=== PATIENT | male | born 1960 | race Caucasian/White ===

== ENCOUNTER 2018-05-25 13:39 | Inpatient (IN) | payer OTHER, SELFPAY ==
[2018-05-25] MEDS ORDERED: NA CHLORIDE 0.9% 2,000 ML ONE ×2 (14:22→14:49)
[2018-05-25 14:41] LABS: Absolute Lymphocytes (CBC) 1.4 K/uL (0.7-4.9); Absolute Monocytes 0.6 K/uL (0.1-1.3); Absolute Neutrophil 11.3 K/uL (1.8-8.0); Basophils % 0.3 % (0-1.3); Eosinophils % 0.1 % (0-4.4); Hematocrit 41.7 % (39.6-49.0); Lymphocytes % 10.3 % (15.3-44.8); MCH 33.5 pg (27.0-35.0); MCV 98.6 fL (80-100); MPV 10.3 fL (7.6-11.3); Monocytes % 4.8 % (3.3-12.3); RBC Red Blood Cell Count 4.23 M/uL (4.33-5.43)
[2018-05-25 14:42] LABS: Protime INR 1.19
[2018-05-25 14:58] LABS: Albumin 2.4 g/dL (3.4-5.0); Bilirubin Direct 0.4 mg/dL (0-0.2); Bilirubin Total 0.8 mg/dL (0.2-1.0); Magnesium 2.5 mg/dL (1.8-2.4); Potassium 4.3 mmol/L (3.5-5.1); Protein, Total 6.9 g/dL (6.4-8.2); Troponin (Emerg Dept Use Only) 0.27 ng/mL (0.0-0.045)
--- NOTE | 2018-05-25 15:33 | EKG ---
Test Date: 2018-05-25 Test Time: 13:52:49 [employer] Tanker Truck Driver: GIULIANO MEASUREMENT RESULTS: Intervals: Rate: 99 CT: 136 QRSD: 88 QT: 388 QTc: 497 [place]: P: 65 CT: 136 QRS: 53 T: -28 INTERPRETIVE STATEMENTS: Normal sinus rhythm Possible Left atrial enlargement T wave abnormality, consider anterolateral ischemia Prolonged QT Abnormal ECG Compared to ECG 03/21/2006 01:15:00 T-wave abnormality now present Possible ischemia now present Prolonged QT interval now present Myocardial infarct finding no longer present Electronically Signed On 05-25-18 15:33:08 CDT by Gopal Saenz
--- NOTE | 2018-05-25 16:09 | RAD REPORT ---
EXAM DESCRIPTION: CT - Chest For Pe Angio - 05/25/2018 3:52 pm CLINICAL HISTORY: Chest pain. CHEST PAIN COMPARISON: No comparisons TECHNIQUE: CT angiogram of the pulmonary arteries was performed with MIP. All CT scans are performed using dose optimization technique as appropriate and may include automated exposure control or mA/KV adjustment according to patient size. FINDINGS: No evidence of pulmonary thromboembolism. No acute aortic finding demonstrated. The lungs are clear. No significant pericardial or pleural fluid. No concerning bony finding. IMPRESSION: No evidence of pulmonary thromboembolism. No acute lung findings.
--- NOTE | 2018-05-25 16:18 | RAD REPORT ---
EXAM DESCRIPTION: CTAbdomen Pelvis W Contrast - 05/25/2018 3:52 pm CLINICAL HISTORY: Abdominal pain. ABD PAIN COMPARISON: Chest For Pe Angio dated 05/25/2018 TECHNIQUE: Biphasic CT imaging of the abdomen and pelvis was performed with 100 ml non-ionic IV cont rast. All CT scans are performed using dose optimization technique as appropriate and may include automated exposure control or mA/KV adjustment according to patient size. FINDINGS: The lung bases are clear. Diffuse fatty liver is present. No focal mass or intrahepatic biliary dilatation. The spleen, adrenal glands and kidneys demonstrate no acute process. Tiny nonobstructing left renal calculus suspected. Pancreas is unremarkable. No bowel obstruction, free air, free fluid or abscess. Sigmoid diverticulosis coli is present without diverticulitis. The appendix is normal. No evidence of significant lymphadenopathy. Left total hip arthroplasty noted. IMPRESSION: No acute intra-abdominal or pelvic finding. Fatty liver. Punctate stone left kidney without hydronephrosis. Sigmoid diverticulosis coli without diverticulitis.
--- NOTE | 2018-05-25 17:05 | EDPHYS ---
Physician Documentation [facility] Name: Varun Kendrick Jr Age: 57 yrs Sex: Male : 1960 Arrival Date: 05/25/2018 Time: 13:43 Bed 26 Private MD: ED Physician Ovidio Howell HPI: 05/25 14:59 This 57 yrs old Male presents to ER via EMS with complaints of Chest Pain, ma2 High Blood Sugar. 14:59 The patient or guardian reports chest pain that is located primarily in the chest ma2 diffusely. Onset: gradually, 2 day(s) ago. Associated signs and symptoms: Pertinent positives: None. Pertinent negatives: cough, headache, shortness of breath, syncope. The chest pain is described as aching. Duration: The patient or guardian reports multiple episodes. Severity of pain: At its worst the pain was moderate in the emergency department the pain is unchanged. The patient has not experienced similar symptoms in the past. had a staph thigh infection last week that is improving on antibiotics, he is here with 2 days of on/off chest pain, n adina edema or hx of DVT . never had chest pain or CAD. Historical: - Allergies: 13:50 Bactrim; aj1 - Home Meds: 13:50 antibiotics [Active]; aj1 - PMHx: 13:50 staph infection; aj1 - Immunization history:: Flu vaccine is not up to date. - Social history:: Smoking status: Patient uses tobacco products, smokes one pack cigarettes per day. Patient reports that he quit smoking 12 days ago, Patient/guardian denies using alcohol, street drugs, The patient lives with family, . - Ebola Screening: : Patient denies travel to an Ebola-affected area in the 21 days before illness onset. - Family history:: not pertinent, pertinent for. ROS: 14:59 Eyes: Negative for injury, pain, redness, and discharge, Respiratory: Negative for ma2 shortness of breath, cough, wheezing, and pleuritic chest pain, Abdomen/GI: Negative for abdominal pain, nausea, diarrhea, and constipation, MS/Extremity: Negative for injury and deformity, Skin: Negative for injury, rash, and discoloration, Neuro: Negative for headache, weakness, numbness, tingling, and seizure. 14:59 Cardiovascular: Positive for chest pain, Negative for edema, orthopnea, palpitations, acute changes. 14:59 Neuro: Positive for Negative for altered mental status, loss of consciousness, tinnitus, visual changes. 14:59 All other systems are negative. Exam: 14:59 Head/Face: Normocephalic, atraumatic. Neck: Trachea midline, no thyromegaly or masses ma2 palpated, and no cervical lymphadenopathy. Supple, full range of motion without nuchal rigidity, or vertebral point tenderness. No Meningismus. Chest/axilla: Normal chest wall appearance and motion. Nontender with no deformity. No lesions are appreciated. Cardiovascular: Regular rate and rhythm with a normal S1 and S2. No gallops, murmurs, or rubs. Normal PMI, no JVD. No pulse deficits. Respiratory: Lungs have equal breath sounds bilaterally, clear to auscultation and percussion. No rales, rhonchi or wheezes noted. No increased work of breathing, no retractions or nasal flaring. MS/ Extremity: Pulses equal, no cyanosis. Neurovascular intact. Full, normal range of motion. Neuro: Awake and alert, GCS 15, oriented to person, place, time, and situation. Cranial nerves II-XII grossly intact. Motor strength 5/5 in all extremities. Sensory grossly intact. Cerebellar exam normal. Normal gait. 14:59 Constitutional: The patient appears in obvious distress, moderately distressed, obviously ill. 14:59 Skin: Wound recheck: left upper thigh wound maximum diameter < 1 cm, good granulation tissue no induration, no pain no tenderness no crepitations . Vital Signs: 13:50 BP 122 / 49; Pulse 101; Resp 18; Temp 98.7(O); Pulse Ox 98% on R/A; Weight 106.59 kg aj1 (R); Height 6 ft. 0 in. (182.88 cm) (R); Pain 8/10; 14:48 BP 133 / 66; Pulse 96; Resp 20; Pulse Ox 99% on R/A; aj1 16:07 BP 109 / 54; Pulse 105; Resp 20; Pulse Ox 99% on R/A; aj1 17:30 BP 117 / 65; Pulse 103; Resp 20; Pulse Ox 97% on R/A; aj1 18:45 BP 105 / 52; Pulse 100; Resp 20; Pulse Ox 96% on R/A; aj1 19:37 BP 115 / 56; Pulse 99; Pulse Ox 93% on R/A; aj1 13:50 Body Mass Index 31.87 (106.59 kg, 182.88 cm) aj1 MDM: 13:44 Patient medically screened. ma2 14:59 Differential diagnosis: acute pericarditis, coronary artery disease gastroesophageal ma2 reflux disease (GERD), pulmonary embolus, DKA. Data reviewed: vital signs, nurses notes, lab test result(s), radiologic studies. 16:58 The patient was given aspirin in the Emergency Department. KRISTYN Risk Score: TOTAL SCORE ma2 = 4. Counseling: I had a detailed discussion with the patient and/or guardian regarding: the historical points, exam findings, and any diagnostic results supporting the discharge/admit diagnosis, the presence of at least one elevated blood pressure reading (>120/80) during this emergency department visit, the need for further work-up and treatment in the hospital. Response to treatment: the patient's symptoms have mildly improved after treatment. ED course: has NSTEMI, EKG with TWI V3-6, trop 0.2, also has new onset DM. discussed with Dr. Saenz who recommend medical management overnight, cath in the morning, discussed with dr. Freitas . 05/25 13:45 Order name: Basic Metabolic Panel; Complete Time: 15:14 ne05/25 13:45 Order name: CBC with Diff; Complete Time: 14:53 ne05/25 13:45 Order name: LFT's; Complete Time: 15:14 ne05/25 13:45 Order name: Magnesium; Complete Time: 15:14 ne05/25 13:45 Order name: NT PRO-BNP; Complete Time: 15:14 05/25 13:45 Order name: PT-INR; Complete Time: 14:52 ne05/25 13:45 Order name: Troponin (emerg Dept Use Only); Complete Time: 15:14 ne05/25 13:45 Order name: XRAY Chest (1 view) ne05/25 13:45 Order name: Blood Culture Adult (2) [facility] 05/25 13:45 Order name: Lactate; Complete Time: 15:14 [facility] 05/25 13:46 Order name: D-Dimer; Complete Time: 14:53 ne05/25 14:52 Order name: CT Chest For PE Angio; Complete Time: 16:34 ma2 05/25 15:59 Order name: Urine Dipstick--Ancillary (enter results) ss 05/25 17:57 Order name: Lactate Sepsis 2 HR Follow-up EDMS 05/25 13:45 Order name: EKG; Complete Time: 13:46 ma2 05/25 13:45 Order name: Cardiac monitoring; Complete Time: 13:57 ma2 05/25 13:45 Order name: EKG - Nurse/Tech; Complete Time: 13:57 ma2 05/25 13:45 Order name: IV Saline Lock; Complete Time: 13:57 ma2 05/25 13:45 Order name: Labs collected and sent; Complete Time: 14:31 ma2 05/25 13:45 Order name: O2 Per Protocol; Complete Time: 13:57 ma2 05/25 13:45 Order name: O2 Sat Monitoring; Complete Time: 13:57 ma2 05/25 15:14 Order name: CT Abd/Pelvis - W/Contrast; Complete Time: 16:34 ma2 05/25 16:46 Order name: EKG - Nurse/Tech: repeat; Complete Time: 16:59 ma2 Administered Medications: 14:20 Drug: NS 0.9% 2000 ml Route: IV; Rate: 1 bolus; Site: right antecubital; aj1 17:38 Drug: Aspirin Chewable Tablet 324 mg Route: PO; aj1 18:47 Follow up: Response: No adverse reaction aj1 17:38 Drug: Lovenox 80 mg Route: Sub-Q; Site: right lower abdomen; aj1 18:47 Follow up: Response: No adverse reaction aj1 17:38 Drug: Metoprolol 25 mg Route: PO; aj1 18:47 Follow up: Response: No adverse reaction aj1 17:38 Drug: PlaVIX 300 mg Route: PO; aj1 18:48 Follow up: Response: No adverse reaction aj1 17:47 Drug: Zofran 4 mg Route: IVP; Site: left antecubital; aj1 18:48 Follow up: Response: No adverse reaction aj1 20:08 Drug: morphine 4 mg Route: IVP; Site: left antecubital; rv 20:08 Follow up: Response: Medication administered at discharge. rv Point of Care Testing: Blood Glucose: 19:37 Blood Glucose: 399 mg/dL; aj1 Ranges: Critical Glucose Levels:Adult <50 mg/dl or >400 mg/dl <40 mg/dl or >180 mg/dl Disposition: 05/25/18 17:04 Hospitalization ordered by Andrew Freitas for Inpatient Admission. Preliminary diagnosis are Non-ST elevation (NSTEMI) myocardial infarction, Elevated blood glucose level. - Bed requested for Intensive Care Unit. - Status is Inpatient Admission. rv - Condition is Stable. - Problem is new. - Symptoms are unchanged. UTI on Admission? No Signatures: Dispatcher [employer] EDMS Radha Moran RN RN aj1 Mira Crowder RN RN dw Ovidio Howell MD MD ma2 Higinio Holley RN RN rv Corrections: (The following items were deleted from the chart) 19:19 17:04 Hospitalization Ordered by Andrew Freitas MD for Inpatient Admission. Preliminary dw diagnosis is Non-ST elevation (NSTEMI) myocardial infarction; Elevated blood glucose level. Bed requested for Intensive Care Unit. Status is Inpatient Admission. Condition is Stable. Problem is new. Symptoms are unchanged. UTI on Admission? No. ma2 20:10 19:19 05/25/2018 17:04 Hospitalization Ordered by Andrew Freitas MD for Inpatient rv Admission. Preliminary diagnosis is Non-ST elevation (NSTEMI) myocardial infarction; Elevated blood glucose level. Bed requested for Intensive Care Unit. Status is Inpatient Admission. Condition is Stable. Problem is new. Symptoms are unchanged. UTI on Admission? No. dw
--- NOTE | 2018-05-25 17:05 | ER ---
Nurse's Notes [facility] Name: Varun Kendrick Jr Age: 57 yrs Sex: Male : 1960 Arrival Date: 05/25/2018 Time: 13:43 Bed 26 Private MD: Diagnosis: Non-ST elevation (NSTEMI) myocardial infarction;Elevated blood glucose level Presentation: 05/25 13:46 Presenting complaint: EMS states: He has been having sharp, intermittent chest pain for aj1 the past 2 days. Patient reports he is currently taking antibiotics for a staph infection to his groin. Patient also reports pain to right ankle. Swelling noted to right ankle. EMS reports that when they checked his blood sugar it was too high to read. Patient denies any history of diabetes. Transition of care: patient was not received from another setting of care. Onset of symptoms was May 22, 2018. Risk Assessment: Do you want to hurt yourself or someone else? Patient reports no desire to harm self or others. Initial Sepsis Screen: Does the patient meet any 2 criteria? HR > 90 bpm. No. Patient's initial sepsis screen is negative. Does the patient have a suspected source of infection? Yes: Skin breakdown/wound. Care prior to arrival: IV initiated. 20 GA, in the left antecubital area. 13:46 Acuity: COLBY 2 aj1 13:46 Method Of Arrival: EMS: [facility] aj1 Triage Assessment: 13:50 General: Appears in no apparent distress. comfortable, Behavior is calm, cooperative, aj1 appropriate for age. Pain: Complains of pain in chest and right ankle Pain currently is 8 out of 10 on a pain scale. Cardiovascular: Patient's skin is warm and dry. Historical: - Allergies: 13:50 Bactrim; aj1 - Home Meds: 13:50 antibiotics [Active]; aj1 - PMHx: 13:50 staph infection; aj1 - Immunization history:: Flu vaccine is not up to date. - Social history:: Smoking status: Patient uses tobacco products, smokes one pack cigarettes per day. Patient reports that he quit smoking 12 days ago, Patient/guardian denies using alcohol, street drugs, The patient lives with family, . - Ebola Screening: : Patient denies travel to an Ebola-affected area in the 21 days before illness onset. - Family history:: not pertinent, pertinent for. Screenin:53 Abuse screen: Denies threats or abuse. Denies injuries from another. Nutritional aj1 screening: No deficits noted. Tuberculosis screening: No symptoms or risk factors identified. 19:39 Fall Risk None identified. aj1 Assessment: 13:53 General: Appears in no apparent distress. uncomfortable, Behavior is calm, cooperative, aj1 appropriate for age. Pain: Complains of pain in chest and right ankle Pain radiates to back Pain currently is 8 out of 10 on a pain scale. Quality of pain is described as sharp, Pain began 2-3 days ago. Is intermittent. Neuro: Level of Consciousness is awake, alert, obeys commands, Oriented to person, place, time, situation, Speech is normal. Cardiovascular: Reports chest pain, Denies shortness of breath, Heart tones S1 S2 present Patient's skin is warm and dry. Rhythm is sinus rhythm Chest pain is described as Pain is 8 out of 10 on a pain scale. quality is sharp, radiates back. Respiratory: Airway is patent Respiratory effort is even, unlabored, Respiratory pattern is Breath sounds are clear bilaterally. GI: No signs and/or symptoms were reported involving the gastrointestinal system. : No signs and/or symptoms were reported regarding the genitourinary system. EENT: No signs and/or symptoms were reported regarding the EENT system. Derm: Skin is pink, warm \T\ dry. normal. Musculoskeletal: Swelling present in right ankle. 14:47 Reassessment: Patient appears in no apparent distress at this time. No changes from aj1 previously documented assessment. Patient and/or family updated on plan of care and expected duration. Pain level reassessed. Patient is alert, oriented x 3, equal unlabored respirations, skin warm/dry/pink. 14:53 Reassessment: Chastity Umana 2049; notified;. 16:06 Reassessment: Patient returned to room from CT. No complaints at this time. General: aj1 Appears in no apparent distress. comfortable, Behavior is calm, cooperative. Neuro: Level of Consciousness is awake, alert, obeys commands. Cardiovascular: Patient's skin is warm and dry. Rhythm is sinus rhythm. Respiratory: Airway is patent Respiratory effort is even, unlabored, Respiratory pattern is regular, symmetrical. Derm: Skin is pink, warm \T\ dry. normal. 17:06 Reassessment: Dr. Saenz at bedside to evaluate patient. aj1 17:20 Reassessment: Patient states that he had wound culture done on his abscess at [facility]. Spoke with staff at [facility] via telephone, states they saw him but did not do a culture. 17:40 Reassessment: Patient reports feeling nauseated, dry heaving. Notified Dr. Washburn. aj1 Order received. 18:42 Reassessment: Patient appears in no apparent distress at this time. No changes from aj1 previously documented assessment. Patient and/or family updated on plan of care and expected duration. Pain level reassessed. Patient is alert, oriented x 3, equal unlabored respirations, skin warm/dry/pink. Vital Signs: 13:50 BP 122 / 49; Pulse 101; Resp 18; Temp 98.7(O); Pulse Ox 98% on R/A; Weight 106.59 kg aj1 (R); Height 6 ft. 0 in. (182.88 cm) (R); Pain 8/10; 14:48 BP 133 / 66; Pulse 96; Resp 20; Pulse Ox 99% on R/A; aj1 16:07 BP 109 / 54; Pulse 105; Resp 20; Pulse Ox 99% on R/A; aj1 17:30 BP 117 / 65; Pulse 103; Resp 20; Pulse Ox 97% on R/A; aj1 18:45 BP 105 / 52; Pulse 100; Resp 20; Pulse Ox 96% on R/A; aj1 19:37 BP 115 / 56; Pulse 99; Pulse Ox 93% on R/A; aj1 13:50 Body Mass Index 31.87 (106.59 kg, 182.88 cm) aj1 ED Course: 13:43 Patient arrived in ED. aj1 13:44 Ovidio Howell MD is Attending Physician. ma2 13:49 Triage completed. aj1 13:50 Arm band placed on. aj1 13:50 Urine collected: clean catch specimen, clear, leyla colored, Amount Voided: 120mL EKG jp3 done, by ED staff, reviewed by Ovidio Howell MD. 13:53 Patient has correct armband on for positive identification. technical systems architect on. Pulse aj1 ox on. NIBP on. 13:53 No provider procedures requiring assistance completed. Maintain EMS IV. Dressing aj1 intact. Good blood return noted. Site clean \T\ dry. Gauge \T\ site: 20 g to left AC. Patient maintains SpO2 saturation greater than 95% on room air. 13:57 Radha Moran, RN is Primary Nurse. aj1 14:15 Initial lab(s) drawn, by me, sent to lab. First set of blood cultures drawn via jp3 20-gauge IV in Left A/C. 14:30 D-Dimer Sent. jp3 14:30 Lactate Sent. jp3 14:30 Basic Metabolic Panel Sent. jp3 14:30 CBC with Diff Sent. jp3 14:31 LFT's Sent. jp3 14:31 NT PRO-BNP Sent. jp3 14:31 Magnesium Sent. jp3 14:31 PT-INR Sent. jp3 14:40 Second set of blood cultures drawn via 21-gauge Butterfly needle from Right A/C. jp3 14:47 Blood Culture Adult (2) Sent. jp3 14:54 X-ray completed. Portable x-ray completed in exam room. Patient tolerated procedure mh1 well. 14:55 Notified ED physician of a critical lab result(s). lactate 2.4. ss 14:57 XRAY Chest (1 view) In Process Unspecified. EDMS 15:51 CT completed. Patient tolerated procedure well. Patient moved to CT via wheelchair. Patient moved back from CT. 15:53 CT Chest For PE Angio In Process Unspecified. EDMS 15:53 CT Abd/Pelvis - W/Contrast In Process Unspecified. EDMS 17:03 Andrew Freitas MD is Hospitalizing Provider. ma2 17:03 EKG done, by cytotechnologist. reviewed by Ovidio Howell MD. sm3 20:10 Patient admitted, IV remains in place. intact. rv Administered Medications: 14:20 Drug: NS 0.9% 2000 ml Route: IV; Rate: 1 bolus; Site: right antecubital; aj1 17:38 Drug: Aspirin Chewable Tablet 324 mg Route: PO; aj1 18:47 Follow up: Response: No adverse reaction aj1 17:38 Drug: Lovenox 80 mg Route: Sub-Q; Site: right lower abdomen; aj1 18:47 Follow up: Response: No adverse reaction aj1 17:38 Drug: Metoprolol 25 mg Route: PO; aj1 18:47 Follow up: Response: No adverse reaction aj1 17:38 Drug: PlaVIX 300 mg Route: PO; aj1 18:48 Follow up: Response: No adverse reaction aj1 17:47 Drug: Zofran 4 mg Route: IVP; Site: left antecubital; aj1 18:48 Follow up: Response: No adverse reaction aj1 20:08 Drug: morphine 4 mg Route: IVP; Site: left antecubital; rv 20:08 Follow up: Response: Medication administered at discharge. rv Point of Care Testing: Blood Glucose: 19:37 Blood Glucose: 399 mg/dL; aj1 Ranges: Outcome: 17:04 Decision to Hospitalize by Provider. ma2 20:09 Admitted to ICU accompanied by nurse, via stretcher, room 7, with oxygen, on monitor, rv with chart, Report called to ARNOL CARUSO 20:09 Condition: stable 20:09 Instructed on the need for admit. 20:10 Patient left the ED. rv Signatures: Dispatcher [employer] EDMS Radha Moran RN RN aj1 [facility] Fiorella Stanford, RN RN Karen Lam Henry, RN RN hj Alzahri, Mohammad, MD MD wy2 Keila Irwin 3 Higinio Holley RN RN rv Haile Man jp3
--- NOTE | 2018-05-25 17:33 | RAD REPORT ---
EXAM DESCRIPTION: RAD - Chest Single View - 05/25/2018 2:56 pm CLINICAL HISTORY: Chest pain COMPARISON: None. TECHNIQUE: AP portable chest image was obtained 1437 hours . FINDINGS: Lungs are clear. Heart and vasculature are normal. No measurable pleural effusion and no p neumothorax. No gross bony abnormality seen. No acute aortic findings suspected. IMPRESSION: No acute cardiopulmonary process.
[2018-05-25] MEDS ORDERED: CLOPIDOGREL 75 MG TABLET ONE (17:39)
[2018-05-25] MEDS ORDERED: ASPIRIN 81 MG CHEWABLE TABLET ONE (17:39)
[2018-05-25] MEDS ORDERED: ENOXAPARIN 80 MG/0.8 ML SQ ONE (17:40)
[2018-05-25] MEDS ORDERED: METOPROLOL TAR 25 MG TAB ONE (17:40)
[2018-05-25] MEDS ORDERED: ONDANSETRON 4 MG/2 ML VIAL ONE (17:51)
[2018-05-25] MEDS ORDERED: MORPHINE 4 MG/ML SYR IV PRN (18:15)
--- NOTE | 2018-05-25 18:20 | P.HP ---
Certification for Inpatient Patient admitted to: Inpatient With expected LOS: >2 Midnights Patient will require the following post-hospital care: None Practitioner: I am a practitioner with admitting privileges, knowledge of patient current condition, hospital course, and medical plan of care. Services: Services provided to patient in accordance with Admission requirements found in Title 42 Section 412.3 of the Code of Federal Regulations Patient History Date of Service: 05/25/18 Reason for admission: chest pain History of Present Illness: 57 y/o man with family hx of CAD presents to ER today chest pain x 3 days. He was healthy. In the past 3 days he had several episodes of left chest pain nad pressure feelings, radiuaiting to left shoulder. Lasting 3 hours or so, 8/1-10 scale. He went to ER and tropo was elevated. He is free from chest pain now. Father had OH at age of 42. Allergies sulfamethoxazole [From Bactrim] Allergy (Verified 05/25/18 18:06) Hives/Rash trimethoprim [From Bactrim] Allergy (Verified 05/25/18 18:06) Hives/Rash Review of Systems 10-point ROS is otherwise unremarkable Physical Examination - Physical Exam General: Alert, In no apparent distress HEENT: Atraumatic, PERRLA, Mucous membr. moist/pink, EOMI, Sclerae nonicteric Neck: Supple, 2+ carotid pulse no bruit, No LAD, Without JVD or thyroid abnormality Respiratory: Clear to auscultation bilaterally, Normal air movement Cardiovascular: Regular rate/rhythm, Normal S1 S2 Gastrointestinal: Normal bowel sounds, No tenderness Musculoskeletal: No tenderness Integumentary: No rashes Neurological: Normal gait, Normal speech, Normal strength at 5/5 x4 extr, Normal tone, Normal affect Lymphatics: No axilla or inguinal lymphadenopathy - Studies Laboratory Data (last 24 hrs) 05/25/18 14:15: PT 14.1 H, INR 1.19 05/25/18 14:15: WBC 13.4 H, Hgb 14.2, Hct 41.7, Plt Count 183 05/25/18 14:15: Sodium 135 L, Potassium 4.3, BUN 29 H, Creatinine 1.30, Glucose 626 H*, Magnesium 2.5 H, Total Bilirubin 0.8, AST 15, ALT 28, Alkaline Phosphatase 141 H Assessment and Plan - Problems (Diagnosis) (1) Myocardial infarction acute Current Visit: Yes Status: Acute Qualifiers: Myocardial infarction type: non-ST elevation myocardial infarction Qualified Code(s): I21.4 - Non-ST elevation (NSTEMI) myocardial infarction - Plan --ICU --Asapirin, Lopresor --Nitro PRN --Morphine PRN --Lovenox --Lipids --Cons Dr Saenz --Likely cath tomorrow - Advance Directives Does patient have a Living Will: No Does patient have a Durable POA for Healthcare: No
[2018-05-25 18:31] LABS: Urine Blood TRACE (NEG); Urine Glucose 2+ (NEG); Urine Protein NEGATIVE (NEG); Urine Specific Gravity <1.005 (1.005-1.030)
--- NOTE | 2018-05-25 19:39 | EKG ---
Test Date: 2018-05-25 Test Time: 16:53:47 Assistant Real Estate Manager: JEAN PAUL MEASUREMENT RESULTS: Intervals: Rate: 102 MO: 138 QRSD: 88 QT: 348 QTc: 453 [place]: P: 65 MO: 138 QRS: 53 T: -52 INTERPRETIVE STATEMENTS: Sinus tachycardia Possible Left atrial enlargement LVH with secondary repolarization changes Abnormal ECG Compared to ECG 05/25/2018 13:52:49 no significant change from previous ECG Electronically Signed On 05-25-18 19:39:20 CDT by Gopal Saenz
[2018-05-25] MEDS ORDERED: NITROGLYCERIN 0.4 MG/TAB SL ONE (19:43)
[2018-05-25] MEDS ORDERED: MORPHINE 4 MG/ML SYR ONE (19:58)
[2018-05-25] MEDS: ENOXAPARIN 100 MG/ML SYR SQ SCH (20:36)
[2018-05-25] MEDS ORDERED: METOPROLOL TAR 50 MG TAB PO SCH (21:00)
[2018-05-25 21:17] VITALS: BMI 32.8
--- NOTE | 2018-05-25 22:12 | CON ---
Chief Complaint: Chest pain. History Of Present Illness: Mr. Kendrick started feeling sick several days ago. He had a large absces s on the inner aspect of his thigh. He squeezed it, a lot of pus came out. He started feeling sick then, getting chest pain and having other problems. He stayed away from work, went to a minor ER i [facility] where he was told it was a staph infection. We do not have any results of that. We are trying t o call the facility where it was done to see if we can get it. The patient has no previous history o f myocardial infarction or stroke, but he does have elevated troponin. He has an EKG that shows nons pecific changes in the T-waves. His home medications have been oxacillin for the infection. He repo rts a drug intolerance to Bactrim; he has not been on Bactrim. He was a cigarette smoker, but quit 1 2 days ago. Denies using alcohol or illegal drugs. The patient has an elevated lactate level and hi s troponin is elevated at 0.27. Physical Examination: General: He is alert, oriented, pleasant, obese. Vital Signs: Blood pressure 122/49, pulse 101, temperature 98.7, weight 106.6 kg, body mass index is 32. HEENT: Unremarkable. Lungs: Clear. Heart: S4 gallop. Abdomen: Soft. Extremities: Normal distal pulses. No cyanosis, clubbing, or edema. The left inner upper thigh is tender, slightly purple in color, and appears to still be draining some small amount of fluid. Impression And Plan: The patient has an acute coronary syndrome, which is stable for now. I will re commend that until we settle out what his infectious status is we should give him heparin, aspirin, n itrates, beta-blockers, and Plavix. When we are sure he is not actively bacteremic and his blood sug ars are better, his initial blood sugar was over 600, we should do a cardiac cath. All that should b e done before he is discharged home. Thank you very much for your kind referral of Mr. Kendrick. I will follow him with you. REDDY/SOFIA Voice ID: [id number] Report ID: [id number]
[2018-05-26 06:02] LABS: RBC Red Blood Cell Count 4.09 M/uL (4.33-5.43)
[2018-05-26 06:03] LABS: Absolute Lymphocytes (CBC) 1.4 K/uL (0.7-4.9); Absolute Monocytes 0.5 K/uL (0.1-1.3); Absolute Neutrophil 13.2 K/uL (1.8-8.0); Basophils % 0.7 % (0-1.3); Eosinophils % 0.3 % (0-4.4); Hematocrit 39.5 % (39.6-49.0); Lymphocytes % 9.2 % (15.3-44.8); MCH 33.4 pg (27.0-35.0); MCV 96.6 fL (80-100); MPV 9.7 fL (7.6-11.3); Monocytes % 3.5 % (3.3-12.3)
[2018-05-26 06:26] LABS: Albumin 2.1 g/dL (3.4-5.0); Bilirubin Total 0.8 mg/dL (0.2-1.0); Protein, Total 6.2 g/dL (6.4-8.2)
[2018-05-26] MEDS ORDERED: GLUCAGON 1 MG/VIAL IM PRN (06:44)
[2018-05-26] MEDS ORDERED: D50W 25 GM/50 ML SYRINGE IV PRN (06:44)
--- NOTE | 2018-05-26 07:24 | EKG ---
Test Date: 2018-05-25 Test Time: 19:54:09 [employer] Shop Supervisor: ELINOR MEASUREMENT RESULTS: Intervals: Rate: 102 GA: 142 QRSD: 88 QT: 332 QTc: 432 Falcon: P: 67 GA: 142 QRS: 66 T: -85 INTERPRETIVE STATEMENTS: Sinus tachycardia ST & T wave abnormality, consider inferior ischemia ST & T wave abnormality, consider anterolateral ischemia Abnormal ECG Compared to ECG 05/25/2018 16:53:47 ST (T wave) deviation now present Possible ischemia now present Left ventricular hypertrophy no longer present Electronically Signed On 05-26-18 07:23:34 CDT by Gopal Saenz
[2018-05-26] MEDS ORDERED: ARFORMOTEROL TARTRATE 15 MCG/2 ML VIAL.NEB NEB SCH (08:00)
[2018-05-26] MEDS: INSULIN -REGULAR HUMAN 50 UNIT/0.5 ML ML SQ SCH ×4 (08:35→20:00)
[2018-05-26] MEDS: NICOTINE 21 MG/PAT TD SCH ×2 (08:36→09:00)
[2018-05-26] MEDS: AMOX/K CLAV 875 MG TAB PO SCH ×2 (08:36→20:01)
[2018-05-26] MEDS: ASPIRIN EC 81 MG TAB PO SCH (08:36)
[2018-05-26] MEDS: DOXYCYCLINE 100 MG CAP PO SCH ×2 (08:36→20:01)
[2018-05-26] MEDS: METOPROLOL TAR 50 MG TAB PO SCH ×2 (09:00→20:02)
[2018-05-26] MEDS: ENOXAPARIN 100 MG/ML SYR SQ SCH (09:00)
[2018-05-26] MEDS ORDERED: ATROPINE SULF 1 MG/10 ML SYR IV ONE (10:04)
[2018-05-26] MEDS ORDERED: HEPA 1000U/500MLS 1,000 UNIT/500 ML BAG IV ONE (10:04)
[2018-05-26] MEDS ORDERED: NA CHLORIDE 0.9% 0 ML ONE (10:04)
[2018-05-26] MEDS ORDERED: NA CHLORIDE 0.9% 500 ML ONE (10:04)
[2018-05-26] MEDS ORDERED: FENTANYL CITR 100 MCG/2 ML ONE (10:05)
[2018-05-26] MEDS ORDERED: MIDAZOLAM HCL 2 MG/2 ML INJ ONE (10:05)
[2018-05-26] MEDS ORDERED: LIDOCAINE 1% MPF 2 ML AMPULE ONE (10:11)
--- NOTE | 2018-05-26 12:41 | P.PN ---
Subjective Date of Service: 05/26/18 Primary Care Provider: Dr. Ennis Chief Complaint: chest pain Subjective: Improving Physical Examination - Vital Signs Temperature: 96.2 F Blood Pressure: 114/42 Pulse: 99 Respirations: 24 Pulse Ox (%): 98 - Physical Exam General: Alert, In no apparent distress, Oriented x3, Cooperative HEENT: Atraumatic Neck: Supple Respiratory: Clear to auscultation bilaterally, Normal air movement Cardiovascular: Normal pulses, Regular rate/rhythm Gastrointestinal: Normal bowel sounds, Soft and benign, Non-distended, No tenderness, No masses, No rebound, No guarding Musculoskeletal: No erythema, No tenderness, No warmth Integumentary: Other (Left upper inner thigh wound appears improved. No significant erythema or exudate noted.) Neurological: Normal speech, Normal strength at 5/5 x4 extr, Normal tone, Normal affect - Studies Laboratory Data (last 24 hrs) 05/25/18 14:15: PT 14.1 H, INR 1.19 05/25/18 14:15: WBC 13.4 H, Hgb 14.2, Hct 41.7, Plt Count 183 05/25/18 14:15: Sodium 135 L, Potassium 4.3, BUN 29 H, Creatinine 1.30, Glucose 626 H*, Magnesium 2.5 H, Total Bilirubin 0.8, AST 15, ALT 28, Alkaline Phosphatase 141 H Medications List Reviewed: Yes Assessment & Plan Discharge Plan: Home Plan to discharge in: 24 Hours Physician Review Additional Text: Impression: Chest pain secondary to Acute Coronary Syndrome New diagnosis of diabetes mellitus type 2 uncontrolled Hypertension Hyperlipidemia Fatty liver Punctate left renal stone without hydronephrosis Suspect obstructive sleep apnea Suspect COPD Tobacco abuse Obesity, BMI 32.8 Plan: Chest pain secondary to Acute Coronary Syndrome: Case discussed at length with cardiology. Patient had heart catheterization showing no significant stenosis. Patient likely had Coronary spasm. Patient will require aspirin 81 mg daily, metoprolol and Lipitor at discharge. Anticipate discharge tomorrow once diabetes is better controlled. Will transition patient to the floor. Will continue to monitor the patient closely. New diagnosis of diabetes mellitus type 2 uncontrolled: A1c 12.0. This is a new diagnosis for him. Will start Lantus 20 units subcu daily. Will consider adding metformin at discharge. Anticipate discharge tomorrow once diabetes is better controlled. Hypertension: Will continue with metoprolol. Will monitor and adjust appropriately. Hyperlipidemia: Will continue with Lipitor. Fatty liver: Will address lifestyle modification education. Punctate left renal stone without hydronephrosis: This can be followed up as an outpatient by urology. Suspect obstructive sleep apnea: Cardiology specks obstructive sleep apnea. Will recommend sleep study as an outpatient. Recommend pulmonology consultation as an outpatient to further address. Suspect COPD: Patient with significant history of tobacco abuse. Patient may require COPD medication at discharge. Will continue with albuterol and Atrovent as needed. Recommend pulmonology consultation as an outpatient to further address. Tobacco abuse: Will provide nicotine patch. Will continue with cessation education Obesity, BMI 32.8: Will continue to address lifestyle modification education. Time Spent Managing Pts Care (In Minutes): 55
[2018-05-26] MEDS: ATORVASTATIN 40 MG TAB PO SCH (20:01)
[2018-05-26] MEDS ORDERED: INSULIN GLARGINE 100 UNITS/ML SQ SCH (21:00)
--- NOTE | 2018-05-26 21:44 | OP ---
Date of Procedure: 05/26/2018 Surgeon: Aba Sanchez MD Carpenter General: Rosy De Souza. Admitted on 05/25/[address] Freitas's service for a non-ST elevation myocardial infarction and DKA. Procedures: The patient was brought to the cardiac catheterization technician on 05/26/2018 for a heart catheterization and se lective coronary arteriogram and the left ventriculogram. Indication: Abnormal troponin. Procedure In Detail: 6-Liberian catheters were used to do the procedure. A 6-Liberian sheath was introd uced in the right common femoral artery. Angio-Seal was used to close the case. Catheterization usi ng Melina catheter 6-Liberian in the left main and right main revealed minimal diffuse plaquing in the distal LAD and the RCA without any focal stenosis. Normal left ventricular ejection fraction. End- diastolic pressure was slightly elevated. There were no complications. Blood Loss: 5 cc. Final Diagnosis: Minimal coronary artery disease. Plan: Medical therapy. Cementer Machine Joiner: Aba Sanchez M.D. Total Conscious Sedation: 30 minutes. MARTELL/SOFIA Voice ID: [id number] Report ID: [id number]
[2018-05-26] MEDS ORDERED: ONDANSETRON 4 MG/2 ML VIAL IV PRN (21:45)
[2018-05-27 07:51] LABS: ALT/SGPT 18 U/L (12-78); AST/SGOT 17 U/L (15-37); Absolute Lymphocytes (CBC) 1.2 K/uL (0.7-4.9); Absolute Monocytes 0.6 K/uL (0.1-1.3); Absolute Neutrophil 14.3 K/uL (1.8-8.0); Alkaline Phosphatase 98 U/L (45-117); BUN Blood Urea Nitrogen 23 mg/dL (7-18); Basophils % 0.1 % (0-1.3); Bicarbonate 25 mmol/L (21-32); Eosinophils % 0.4 % (0-4.4); Glucose Level 315 mg/dL (74-106); Hematocrit 35.3 % (39.6-49.0); Lymphocytes % 7.6 % (15.3-44.8); MCH 34.1 pg (27.0-35.0); MCV 96.6 fL (80-100); MPV 10.1 fL (7.6-11.3); Magnesium 2.3 mg/dL (1.8-2.4); Potassium 3.6 mmol/L (3.5-5.1); RBC Red Blood Cell Count 3.65 M/uL (4.33-5.43); Sodium Level 138 mmol/L (136-145)
[2018-05-27] MEDS: METFORMIN HCL 500 MG TAB PO SCH ×2 (08:00→08:46)
[2018-05-27] MEDS: METOPROLOL TAR 50 MG TAB PO SCH ×2 (08:54→22:12)
[2018-05-27] MEDS: INSULIN -REGULAR HUMAN 50 UNIT/0.5 ML ML SQ SCH ×4 (08:54→22:15)
[2018-05-27] MEDS: ASPIRIN EC 81 MG TAB PO SCH (08:54)
[2018-05-27] MEDS: DOXYCYCLINE 100 MG CAP PO SCH (08:54)
[2018-05-27] MEDS: AMOX/K CLAV 875 MG TAB PO SCH (08:56)
[2018-05-27] MEDS: NICOTINE 21 MG/PAT TD SCH (08:56)
[2018-05-27 10:47] LABS: Blood Morphology Comment NOT SEEN (NOT SEEN); Platelet Estimate ADEQ; Urine White Blood Cell Casts OK
--- NOTE | 2018-05-27 12:42 | P.PN ---
Subjective Date of Service: 05/27/18 Primary Care Provider: Dr. Ennis Chief Complaint: chest pain Subjective: Doing well (Patient doing better but had nausea and vomiting this morning. No fever noted. Blood sugar still elevated. Patient started on Lantus last night.) Physical Examination - Vital Signs Temperature: 97.3 F Blood Pressure: 138/52 Pulse: 102 Respirations: 20 Pulse Ox (%): 98 - Physical Exam General: Alert, In no apparent distress, Oriented x3, Cooperative HEENT: Atraumatic Neck: Supple Respiratory: Clear to auscultation bilaterally, Normal air movement Cardiovascular: Normal pulses, Regular rate/rhythm Gastrointestinal: Normal bowel sounds, Soft and benign, Non-distended, No tenderness, No masses, No rebound, No guarding Musculoskeletal: No erythema, No tenderness, No warmth Integumentary: Other (Left upper inner thigh wound appears clean. No exudate noted. Mild erythema to the groin area likely fungal.) Neurological: Normal speech, Normal strength at 5/5 x4 extr, Normal tone, Normal affect - Studies Medications List Reviewed: Yes Assessment & Plan Discharge Plan: Home Plan to discharge in: 24 Hours Physician Review Additional Text: Impression: Chest pain secondary to Acute Coronary Syndrome, heart catheterization revealed minimal diet if use plaquing in the distal LAD and RCA without focal stenosis. Normal ejection fraction noted. New diagnosis of diabetes mellitus type 2 uncontrolled, A1c 12 Nausea and vomiting suspect GERD Blood cultures 2/4 likely contaminant Hypertension Hyperlipidemia Fatty liver Punctate left renal stone without hydronephrosis History of left inner thigh abscess status post I and D with noted yeast infection to the groin Suspect obstructive sleep apnea Suspect COPD Tobacco abuse Obesity, BMI 32.8 Plan: Chest pain secondary to Acute Coronary Syndrome, heart catheterization revealed minimal diet if use plaquing in the distal LAD and RCA without focal stenosis. Normal ejection fraction noted: Case discussed at length with cardiology. Patient will continue with medical therapy. Patient currently on aspirin 81 mg daily, metoprolol and Lipitor. Blood sugar still elevated. Patient with nausea this morning. Will hold discharge until both are improved, likely tomorrow. New diagnosis of diabetes mellitus type 2 uncontrolled: A1c 12.0. This is a new diagnosis for him. Will increase Lantus to 30 units subcu daily. Patient will require Lantus at discharge. Blood sugars needs to be better controlled prior to discharge. Anticipate discharge tomorrow. Blood cultures 2/4 suspect contamination: White count still elevated as well. Patient on antibiotic therapy for left inner thigh wound. Await final results of culture. Will monitor closely. Will check chest x-ray and urinalysis. Nausea and vomiting suspect GERD: Will start Protonix. History of left inner thigh abscess status post I and D with noted yeast infection to the groin: Will continue with antibiotic therapy. Will continue with wound care. No exudate noted for yeast infection. Hypertension: Will continue with metoprolol. Will monitor and adjust appropriately. Hyperlipidemia: Will continue with Lipitor. Fatty liver: Will address lifestyle modification education. Punctate left renal stone without hydronephrosis: This can be followed up as an outpatient by urology. Suspect obstructive sleep apnea: Cardiology specks obstructive sleep apnea. Will recommend sleep study as an outpatient. Recommend pulmonology consultation as an outpatient to further address. Suspect COPD: Patient with significant history of tobacco abuse. Patient may require COPD medication at discharge. Will continue with albuterol and Atrovent as needed. Recommend pulmonology consultation as an outpatient to further address. Tobacco abuse: Will provide nicotine patch. Will continue with cessation education Obesity, BMI 32.8: Will continue to address lifestyle modification education. Time Spent Managing Pts Care (In Minutes): 55
[2018-05-27] MEDS: PANTOPRAZOLE 40MG TABLET PO SCH (12:52)
--- NOTE | 2018-05-27 12:52 | RAD REPORT ---
EXAM DESCRIPTION: RAD - Chest Pa And Lat (2 Views) - 05/27/2018 12:43 pm CLINICAL HISTORY: Pneumonia COMPARISON: May worst chest film, May 25 CT chest TECHNIQUE: PA and lateral views of the chest were obtained. FINDINGS: The lungs are fibrotic as a baseline. Patient has an overall increase in interstitial sabrina ings throughout the lung guaman compared to the prior imaging. There is focally more prominent inters titial and patchy alveolar opacification in the right base. Heart size is normal and central vascul ature is within normal limits. No pneumothorax. Posterior costophrenic angle blunting present. No ac cem bony finding noted. No aortic abnormality. IMPRESSION: Mild or developing right lung base pneumonia. Throughout the lung guaman interstitial markings are more prominent suggesting more diffuse interstit ial infiltrate or edema pattern. No cardiomegaly.
[2018-05-27 13:43] LABS: Urine Appearance CLEAR; Urine Blood NEGATIVE (NEG); Urine Color YELLOW; Urine Glucose 3+ (NEG); Urine Protein TRACE (NEG); Urine Specific Gravity 1.025 (1.005-1.030); Urine Urobilinogen 0.2 mg/dL (0.2-1.0); Urine pH 5.5 (5.0-7.0)
[2018-05-27 13:46] LABS: Urine Microscopic Reflex ORDER UMIC
[2018-05-27 13:52] LABS: Urine Bilirubin POSITIVE (NEG)
[2018-05-27 14:04] LABS: Urine Bacteria <20 /HPF (NONE SEEN); Urine Culture Reflex Order REFLEXED; Urine RBC <5 /HPF (NONE SEEN)
[2018-05-27] MEDS ORDERED: Levofloxacin500mg IV 500 MG/100 ML BAG IV SCH (18:00)
[2018-05-27] MEDS: Levofloxacin500mg IV 500 MG/100 ML BAG IV SCH (18:11)
[2018-05-27] MEDS: ENOXAPARIN 40 MG/0.4 ML SQ SCH (18:11)
[2018-05-27] MEDS ORDERED: INSULIN GLARGINE 100 UNITS/ML SQ SCH ×2 (21:00)
[2018-05-27] MEDS: ALBUTEROL 2.5 MG/3 ML NEB SOL NEB PRN (22:10)
[2018-05-27] MEDS: MUPIROCIN 2% OINT 22GM TUBE TOP SCH (22:10)
[2018-05-27] MEDS: NYSTATIN 100MU/GM CREAM 15GM TOP SCH (22:12)
[2018-05-27] MEDS: ATORVASTATIN 40 MG TAB PO SCH (22:14)
[2018-05-27] MEDS: IPRATROPIUM BROM 0.5MG/2.5ML NEB PRN (22:46)
[2018-05-28] MEDS: ALBUTEROL 2.5 MG/3 ML NEB SOL NEB PRN ×2 (03:05→22:00)
[2018-05-28] MEDS: IPRATROPIUM BROM 0.5MG/2.5ML NEB PRN ×2 (03:05→22:00)
[2018-05-28] MEDS: PANTOPRAZOLE 40MG TABLET PO SCH (05:47)
[2018-05-28 05:52] LABS: Absolute Lymphocytes (CBC) 1.7 K/uL (0.7-4.9); Absolute Monocytes 0.7 K/uL (0.1-1.3); Absolute Neutrophil 11.7 K/uL (1.8-8.0); Basophils % 0.1 % (0-1.3); Eosinophils % 0.6 % (0-4.4); Hematocrit 34.3 % (39.6-49.0); Lymphocytes % 12.3 % (15.3-44.8); MCH 34.2 pg (27.0-35.0); MCV 97.1 fL (80-100); MPV 9.9 fL (7.6-11.3); Monocytes % 4.6 % (3.3-12.3); RBC Red Blood Cell Count 3.53 M/uL (4.33-5.43)
[2018-05-28 06:04] LABS: Magnesium 2.2 mg/dL (1.8-2.4); Potassium 3.1 mmol/L (3.5-5.1)
--- NOTE | 2018-05-28 07:00 | RAD REPORT ---
EXAM DESCRIPTION: RAD - Chest Pa And Lat (2 Views) - 05/28/2018 6:46 am CLINICAL HISTORY: Pneumonia COMPARISON: May 27 TECHNIQUE: PA and lateral views of the chest were obtained. FINDINGS: The lungs are underinflated. Lung base opacification is similar or slightly improved. Alesha ent continues to demonstrate a diffuse prominence of the interstitial markings throughout the lung fi elds. No cardiomegaly or vascular engorgement. No pleural effusion or pneumothorax seen. No acute bony finding noted. No aortic abnormality. IMPRESSION: Diffuse chronic interstitial lung disease. Lung parenchymal opacification remains, similar or fractionally improved from prior day.
[2018-05-28] MEDS: METOPROLOL TAR 50 MG TAB PO SCH (09:00)
[2018-05-28] MEDS: MUPIROCIN 2% OINT 22GM TUBE TOP SCH ×3 (09:00→21:42)
[2018-05-28] MEDS: NICOTINE 21 MG/PAT TD SCH ×2 (09:00→09:17)
[2018-05-28] MEDS: ASPIRIN EC 81 MG TAB PO SCH (09:16)
[2018-05-28] MEDS: NYSTATIN 100MU/GM CREAM 15GM TOP SCH ×2 (09:18→21:48)
[2018-05-28] MEDS: INSULIN -REGULAR HUMAN 50 UNIT/0.5 ML ML SQ SCH ×4 (10:14→21:46)
--- NOTE | 2018-05-28 10:52 | P.PN ---
Subjective Date of Service: 05/28/18 Primary Care Provider: Dr. Ennis Chief Complaint: chest pain Subjective: Improving (No nausea or vomiting today.) Physical Examination - Vital Signs Temperature: 97.2 F Blood Pressure: 106/53 Pulse: 97 Respirations: 18 Pulse Ox (%): 96 - Physical Exam General: Alert, In no apparent distress, Oriented x3, Cooperative HEENT: Atraumatic Neck: Supple Respiratory: Clear to auscultation bilaterally, Normal air movement Cardiovascular: Normal pulses, Regular rate/rhythm Gastrointestinal: Normal bowel sounds, Soft and benign, Non-distended, No masses , No rebound, No guarding Musculoskeletal: No erythema, No tenderness, No warmth Integumentary: No tenderness/swelling, No erythema, No warmth, No cyanosis Neurological: Normal speech, Normal strength at 5/5 x4 extr, Normal tone, Normal affect - Studies Medications List Reviewed: Yes Assessment & Plan Discharge Plan: Home Plan to discharge in: 24 Hours Physician Review Additional Text: Impression: Chest pain secondary to Acute Coronary Syndrome, heart catheterization revealed minimal diet if use plaquing in the distal LAD and RCA without focal stenosis. Normal ejection fraction noted. New diagnosis of diabetes mellitus type 2 uncontrolled, A1c 12 Right lower lobe pneumonia with bacteremia, blood cultures 2/4 positive for Streptococcus agal. Nausea and vomiting suspect GERD Blood cultures 2/4 likely contaminant Hypertension Hyperlipidemia Fatty liver Punctate left renal stone without hydronephrosis History of left inner thigh abscess status post I and D with noted yeast infection to the groin Suspect obstructive sleep apnea Suspect COPD Tobacco abuse Obesity, BMI 32.8 Plan: Chest pain secondary to Acute Coronary Syndrome, heart catheterization revealed minimal diet if use plaquing in the distal LAD and RCA without focal stenosis. Normal ejection fraction noted: Case discussed at length with cardiology. Patient will continue with medical therapy. Patient currently on aspirin 81 mg daily, metoprolol and Lipitor. Blood sugar still elevated but improved. Anticipate discharge tomorrow New diagnosis of diabetes mellitus type 2 uncontrolled: A1c 12.0. This is a new diagnosis for him. Lantus adjusted with better blood sugar control. Will continue to monitor and adjust. Right lower lobe pneumonia with bacteremia, blood cultures 2/4 positive for Streptococcus agal.: Patient transitioned to IV Levaquin yesterday. Patient improved. Patient will need 14 days of antibiotic therapy. Pro calcitonin shows improvement. Anticipate discharge tomorrow. Nausea and vomiting suspect GERD: Will continue with Protonix. History of left inner thigh abscess status post I and D with noted yeast infection to the groin: Will continue care. Antibiotics adjusted due to bacteremia and pneumonia. Hypertension: Will continue with metoprolol. Will decrease metoprolol. Will monitor and adjust appropriately. Hyperlipidemia: Will continue with Lipitor. Fatty liver: Will address lifestyle modification education. Punctate left renal stone without hydronephrosis: This can be followed up as an outpatient by urology. Suspect obstructive sleep apnea: Cardiology specks obstructive sleep apnea. Will recommend sleep study as an outpatient. Recommend pulmonology consultation as an outpatient to further address. Suspect COPD: Patient with significant history of tobacco abuse. Patient may require COPD medication at discharge. Will continue with albuterol and Atrovent as needed. Recommend pulmonology consultation as an outpatient to further address. Tobacco abuse: Will provide nicotine patch. Will continue with cessation education Obesity, BMI 32.8: Will continue to address lifestyle modification education. Time Spent Managing Pts Care (In Minutes): 55
[2018-05-28] MEDS: ENOXAPARIN 40 MG/0.4 ML SQ SCH (16:29)
[2018-05-28] MEDS: Levofloxacin500mg IV 500 MG/100 ML BAG IV SCH (17:34)
[2018-05-28] MEDS ORDERED: INSULIN GLARGINE 100 UNITS/ML SQ SCH (21:00)
[2018-05-28] MEDS: ATORVASTATIN 40 MG TAB PO SCH (21:47)
[2018-05-29] MEDS: PANTOPRAZOLE 40MG TABLET PO SCH (05:20)
[2018-05-29 05:56] LABS: Absolute Lymphocytes (CBC) 1.3 K/uL (0.7-4.9); Absolute Monocytes 0.6 K/uL (0.1-1.3); Basophils % 0.4 % (0-1.3); Eosinophils % 0.7 % (0-4.4); Hematocrit 31.4 % (39.6-49.0); Lymphocytes % 13.1 % (15.3-44.8); MCV 96.7 fL (80-100); MPV 9.9 fL (7.6-11.3); Monocytes % 6.4 % (3.3-12.3); RBC Red Blood Cell Count 3.24 M/uL (4.33-5.43)
[2018-05-29 06:11] LABS: Magnesium 2.4 mg/dL (1.8-2.4); Potassium 3.2 mmol/L (3.5-5.1)
[2018-05-29] MEDS: INSULIN -REGULAR HUMAN 50 UNIT/0.5 ML ML SQ SCH ×3 (07:30→16:48)
[2018-05-29] MEDS: MUPIROCIN 2% OINT 22GM TUBE TOP SCH (09:00)
[2018-05-29] MEDS: NICOTINE 21 MG/PAT TD SCH (09:00)
[2018-05-29] MEDS ORDERED: METOPROLOL TAR 25 MG TAB PO SCH (09:00)
[2018-05-29] MEDS: ASPIRIN EC 81 MG TAB PO SCH (09:11)
[2018-05-29] MEDS: NYSTATIN 100MU/GM CREAM 15GM TOP SCH (09:11)
[2018-05-29 09:12] VITALS: O2SAT 94
--- NOTE | 2018-05-29 11:19 | RAD REPORT ---
EXAM DESCRIPTION: RAD - Chest Pa And Lat (2 Views) - 05/29/2018 11:05 am CLINICAL HISTORY: flagged for sepsis Chest pain. COMPARISON: Chest Pa And Lat (2 Views) dated 05/28/2018; Chest Pa And Lat (2 Views) dated 05/27/2018; Chest Single View dated 05/25/2018; Chest For Pe Angio dated 05/25/2018 FINDINGS: Diffuse interstitial prominence is present with small bilateral pleural effusions, unchang ed. The heart is normal in size. No displaced fractures. IMPRESSION: Stable chest since 05/28/2018.
[2018-05-29 12:10] VITALS: BP 113/44; TEMP 97.4
--- NOTE | 2018-05-29 14:30 | P.DS ---
Admission Date: 05/25/18 Discharge Date: 05/29/18 Primary Care Provider: Dr. Ennis Disposition: ROUTINE DISCHARGE Discharge Condition: GOOD Reason for Admission: chest pain Procedures: Heart catheterization: Date of Procedure: 05/26/2018 Surgeon: Aba Sanchez MD Senior Software Project Manager: Rosy De Souza. Procedures: The patient was brought to the [facility] on 05/26/2018 for a heart catheterization and selective coronary arteriogram and the left ventriculogram. Indication: Abnormal troponin. Procedure In Detail: 6-Bahraini catheters were used to do the procedure. A 6- Bahraini sheath was introduced in the right common femoral artery. Angio-Seal was used to close the case. Catheterization using Melina catheter 6-Bahraini in the left main and right main revealed minimal diffuse plaquing in the distal LAD and the RCA without any focal stenosis. Normal left ventricular ejection fraction. End-diastolic pressure was slightly elevated. There were no complications. Blood Loss: 5 cc. Final Diagnosis: Minimal coronary artery disease. Plan: Medical therapy. Rubber Trimmer: Aba Sanchez M.D. Echocardiogram: CT abdomen: COMPARISON: Chest For Pe Angio dated 05/25/2018 TECHNIQUE: Biphasic CT imaging of the abdomen and pelvis was performed with 100 ml non-ionic IV contrast. All CT scans are performed using dose optimization technique as appropriate and may include automated exposure control or mA/KV adjustment according to patient size. FINDINGS: The lung bases are clear. Diffuse fatty liver is present. No focal mass or intrahepatic biliary dilatation. The spleen, adrenal glands and kidneys demonstrate no acute process. Tiny nonobstructing left renal calculus suspected. Pancreas is unremarkable. No bowel obstruction, free air, free fluid or abscess. Sigmoid diverticulosis coli is present without diverticulitis. The appendix is normal. No evidence of significant lymphadenopathy. Left total hip arthroplasty noted. IMPRESSION: No acute intra-abdominal or pelvic finding. Fatty liver. Punctate stone left kidney without hydronephrosis. Sigmoid diverticulosis coli without diverticulitis. CT chest scan: COMPARISON: No comparisons TECHNIQUE: CT angiogram of the pulmonary arteries was performed with MIP. All CT scans are performed using dose optimization technique as appropriate and may include automated exposure control or mA/KV adjustment according to patient size. FINDINGS: No evidence of pulmonary thromboembolism. No acute aortic finding demonstrated. The lungs are clear. No significant pericardial or pleural fluid. No concerning bony finding. IMPRESSION: No evidence of pulmonary thromboembolism. No acute lung findings. Medical problem list: Chest pain secondary to Acute Coronary Syndrome, heart catheterization revealed minimal cardiac disease. Left main and right main revealed minimal diffuse plaquing in the distal LAD and RCA without focal stenosis New diagnosis of diabetes mellitus type 2 uncontrolled, A1c 12 Right lower lobe pneumonia with bacteremia, blood cultures 2/4 positive for Streptococcus agal. Nausea and vomiting suspect GERD Blood cultures 2/4 likely contaminant Hypertension Hyperlipidemia Fatty liver Punctate left renal stone without hydronephrosis History of left inner thigh abscess status post I and D with noted yeast infection to the groin Suspect obstructive sleep apnea Suspect COPD Tobacco abuse Obesity, BMI 32.8 Brief History of Present Illness: 49-year-old male presented emergency room with chest pain. Patient admitted for further evaluation. Patient found to have Acute Coronary Syndrome. Hospital Course: Patient presented with chest pain secondary to acute Coronary Syndrome. Patient evaluated in the hospital. Patient seen by Cardiology. Patient had heart catheterization revealed minimal cardiac disease. Left main and right main revealed minimal diffuse plaquing in the distal LAD and RCA without focal stenosis. Patient had normal ejection fraction. Recommendation was to continue medical therapy. At discharge patient will continue with aspirin 81 mg daily. Metoprolol 12.5 mg 1 pill daily and Lipitor 40 mg 1 pill daily. Recommendation is for the patient follow up with cardiology as an outpatient to further monitor. Patient was found to have new diagnosis of diabetes type 2. A1c 12.0. At discharge patient will continue with insulin NPH 20 subcu twice daily. Patient will also start metformin 500 mg 1 pill twice daily. Recommendation for the patient follow up with a PCP to continue his care. Recommendation is to maintain blood sugars less than 140 fasting and less than 200 after meals. Further adjustment can be done by his PCP. Patient developed right lower lobe pneumonia with bacteremia. Blood cultures positive Streptococcus. Patient improved with antibiotic therapy. At discharge patient will continue with Levaquin 500 mg 1 pill daily for 11 days. Recommendation is to recheck chest x-ray in 2-4 weeks to monitor his progress. Patient likely has GERD. Patient continue with Protonix 40 mg 1 pill once daily. Patient had recent inner left thigh abscess status post debridement. This has improved. Patient will continue with current wound care. Patient has hypertension. Patient will continue with metoprolol 12.5 mg 1 pill once daily. Recommendation is to maintain blood pressures less 150/80. Further adjustment can be done by his PCP. Patient has hyperlipidemia. Patient will continue with Lipitor 40 mg [address] scan revealed fatty liver. Education on fatty liver will be provided. CT scan also revealed punctate left renal stone without hydronephrosis. Patient may follow up with urology as an outpatient to further monitor. Patient likely has underlying obstructive sleep apnea and COPD. At discharge it is recommended that the patient follow up with pulmonology in outpatient to further monitor and address. At discharge, Pro air 2 puffs 3 times a day as needed for shortness of breath will be provided. Tobacco cessation education will be provided at discharge. Lifestyle modification education will also be provided. Vital Signs/Physical Exam: Temp Pulse Resp BP Pulse Ox 97.4 F 103 H 18 113/44 L 99 05/29/18 12:00 05/29/18 12:00 05/29/18 12:00 05/29/18 12:00 05/29/18 12:00 General: Alert, In no apparent distress, Oriented x3, Cooperative HEENT: Atraumatic Neck: Supple Respiratory: Clear to auscultation bilaterally, Normal air movement Cardiovascular: Normal pulses, Regular rate/rhythm Gastrointestinal: Normal bowel sounds, Soft and benign, Non-distended, No tenderness, No masses, No rebound, No guarding Musculoskeletal: No contractures, No erythema, No tenderness, No warmth Integumentary: No tenderness/swelling, No erythema, No warmth, No cyanosis Neurological: Normal speech, Normal strength at 5/5 x4 extr, Normal tone, Normal affect Laboratory Data at Discharge: WBC 10.1 K/uL (4.3-10.9) D 05/29/18 05:05 Hgb 11.0 g/dL (13.6-17.9) L 05/29/18 05:05 Hct 31.4 % (39.6-49.0) L 05/29/18 05:05 Plt Count 209 K/uL (152-406) 05/29/18 05:05 PT 14.1 SECONDS (9.5-12.5) H 05/25/18 14:15 INR 1.19 05/25/18 14:15 Sodium 139 mmol/L (136-145) 05/29/18 05:05 Potassium 3.2 mmol/L (3.5-5.1) L 05/29/18 05:05 BUN 18 mg/dL (7-18) 05/29/18 05:05 Creatinine 1.00 mg/dL (0.55-1.3) 05/29/18 05:05 Glucose 159 mg/dL (74-106) H 05/29/18 05:05 Magnesium 2.4 mg/dL (1.8-2.4) 05/29/18 05:05 Total Bilirubin 1.0 mg/dL (0.2-1.0) 05/27/18 07:10 AST 17 U/L (15-37) 05/27/18 07:10 ALT 18 U/L (12-78) 05/27/18 07:10 Alkaline Phosphatase 98 U/L (45-117) 05/27/18 07:10 Troponin I 0.23 ng/mL (0.0-0.045) H 05/26/18 05:47 Triglycerides Cancelled 05/26/18 18:21 Cholesterol Cancelled 05/26/18 18:21 HDL Cholesterol Cancelled 05/26/18 18:21 Cholesterol/HDL Ratio Cancelled 05/26/18 18:21 Home Medications: Albuterol Sulfate [Proair Hfa] 8.5 gm IH TID PRN #1 hfa.aer.ad 05/29/18 Aspirin [Aspirin EC 81 MG] 81 mg PO DAILY #90 tablet. 05/29/18 Atorvastatin Calcium [Lipitor] 40 mg PO BEDTIME #30 tab 05/29/18 Levofloxacin [Levaquin] 500 mg PO DAILY #11 tablet 05/29/18 Metformin HCl 500 mg PO BID #60 tablet 05/29/18 Metoprolol Tartrate [Lopressor*] 12.5 mg PO DAILY #30 tab 05/29/18 NPH, Human Insulin Isophane [Humulin N] 20 unit SQ BID #1 vial 05/29/18 Nystatin Cream [Mycostatin 100MU/Gm Cream*] 1 appl TOP BID #1 tube 05/29/18 Pantoprazole [Protonix Tab*] 40 mg PO DAILYAC #30 tab 05/29/18 New Medications: Albuterol Sulfate [Proair Hfa] 8.5 gm IH TID PRN #1 hfa.aer.ad PRN Reason: Shortness Of Breath Aspirin [Aspirin EC 81 MG] 81 mg PO DAILY #90 tablet. Atorvastatin Calcium [Lipitor] 40 mg PO BEDTIME #30 tab Levofloxacin [Levaquin] 500 mg PO DAILY #11 tablet Metformin HCl 500 mg PO BID #60 tablet Metoprolol Tartrate [Lopressor*] 12.5 mg PO DAILY #30 tab NPH, Human Insulin Isophane [Humulin N] 20 unit SQ BID #1 vial Nystatin Cream [Mycostatin 100MU/Gm Cream*] 1 appl TOP BID #1 tube Pantoprazole [Protonix Tab*] 40 mg PO DAILYAC #30 tab Patient Discharge Instructions: 1. Patient will need to establish care to follow up this hospitalization. 2. Patient presented with chest pain secondary to Acute Coronary Syndrome. Patient evaluated in the hospital. Patient seen by Cardiology. Patient had heart catheterization revealed minimal cardiac disease. Left main and right main revealed minimal diffuse plaquing in the distal LAD and RCA without focal stenosis. Patient had normal ejection fraction. Recommendation was to continue medical therapy. At discharge patient will continue with aspirin 81 mg daily. Metoprolol 12.5 mg 1 pill daily and Lipitor 40 mg 1 pill daily. Recommendation is for the patient follow up with cardiology as an outpatient to further monitor. 3. Patient was found to have new diagnosis of diabetes type 2. A1c 12.0. At discharge patient will continue with insulin NPH 20 subcu twice daily. Patient will also start metformin 500 mg 1 pill twice daily. Recommendation for the patient follow up with a PCP to continue his care. Recommendation is to maintain blood sugars less than 140 fasting and less than 200 after meals. Further adjustment can be done by his PCP. 4. Patient developed right lower lobe pneumonia with bacteremia. Blood cultures positive Streptococcus. Patient improved with antibiotic therapy. At discharge patient will continue with Levaquin 500 mg 1 pill daily for 11 days. Recommendation is to recheck chest x-ray in 2-4 weeks to monitor his progress. 5. Patient likely has GERD. Patient continue with Protonix 40 mg 1 pill once daily. 6. Patient had recent inner left thigh abscess status post debridement. This has improved. Patient will continue with current wound care. 7. Patient has hypertension. Patient will continue with metoprolol 12.5 mg 1 pill once daily. Recommendation is to maintain blood pressures less 150/80. Further adjustment can be done by his PCP. 8. Patient has hyperlipidemia. Patient will continue with Lipitor 40 mg 1 pill once daily. 9. CT scan revealed fatty liver. Education on fatty liver will be provided. 10. CT scan also revealed punctate left renal stone without hydronephrosis. Patient may follow up with urology as an outpatient to further monitor. 11. Patient likely has underlying obstructive sleep apnea and COPD. At discharge it is recommended that the patient follow up with pulmonology in outpatient to further monitor and address. At discharge, Pro air 2 puffs 3 times a day as needed for shortness of breath will be provided. 12. Tobacco cessation education will be provided at discharge. Lifestyle modification education will also be provided. Diet: ADA Activity: Ad viv Time spent managing pt's care (in minutes): 55
[2018-05-29] MEDS: ENOXAPARIN 40 MG/0.4 ML SQ SCH (16:48)
== END 2018-05-29 17:54 | disposition home or self-care (01) | DRG 280 ==
LOC: ER 13:39 → ERHOLD 17:06 → 3RD-ICU 19:49 → 4TH 05-26 18:05
PROVIDERS: ADMIT Internal Medicine Hematology & Oncology; ATTEND Family Medicine
PROC: 4A023N7 Measurement of Cardiac Sampling and Pressure, Left Heart, Percutaneous Approach (ICD-10-PCS; principal; 2018-05-26)
PROC: B201YZZ Plain Radiography of Multiple Coronary Arteries using Other Contrast (ICD-10-PCS; 2018-05-26)
PROC: B205YZZ Plain Radiography of Left Heart using Other Contrast (ICD-10-PCS; 2018-05-26)
DX: I21.4 Non-ST elevation (NSTEMI) myocardial infarction (principal); J18.9 Pneumonia, unspecified organism; E11.10 Type 2 diabetes mellitus with ketoacidosis without coma; R78.81 Bacteremia; L02.416 Cutaneous abscess of left lower limb; I25.10 Atherosclerotic heart disease of native coronary artery without angina pectoris; I24.9 Acute ischemic heart disease, unspecified; K21.9 Gastro-esophageal reflux disease without esophagitis; I10 Essential (primary) hypertension; E78.5 Hyperlipidemia, unspecified; K76.0 Fatty (change of) liver, not elsewhere classified; N20.0 Calculus of kidney; G47.33 Obstructive sleep apnea (adult) (pediatric); J44.9 Chronic obstructive pulmonary disease, unspecified; E66.9 Obesity, unspecified; Z68.32 Body mass index [BMI] 32.0-32.9, adult; Z82.49 Family history of ischemic heart disease and other diseases of the circulatory system; F17.210 Nicotine dependence, cigarettes, uncomplicated; B95.1 Streptococcus, group B, as the cause of diseases classified elsewhere
CPT/HCPCS: 36415; 71045; 71046; 71275; 74177; 80048; 80053; 80061; 80076; 81003; 81015; 82962; 83036; 83605; 83735; 83880; 84145; 84484; 85025; 85379; 85610; 87040; 87077; 87086; 87088; 87186; 87205; 93005; 93458; 94640; 96372; 96374; 96375; 99285; C1760; C1893; J0583; J1650; J2001; J2250; J2405; J3010; J7030; Q9967

== ENCOUNTER 2018-06-04 13:31 | Inpatient (IN) | payer SELFPAY ==
[2018-06-04] MEDS ORDERED: ONDANSETRON 4 MG/2 ML VIAL ONE (13:47)
[2018-06-04] MEDS ORDERED: MORPHINE 4 MG/ML SYR ONE ×3 (13:47→22:28)
[2018-06-04 14:17] LABS: Absolute Lymphocytes (CBC) 2.6 K/uL (0.7-4.9); Absolute Monocytes 1.3 K/uL (0.1-1.3); Absolute Neutrophil 8.9 K/uL (1.8-8.0); Basophils % 0.4 % (0-1.3); Eosinophils % 0.4 % (0-4.4); Hematocrit 32.8 % (39.6-49.0); Lymphocytes % 20.2 % (15.3-44.8); MCH 32.9 pg (27.0-35.0); MCV 95.4 fL (80-100); MPV 8.5 fL (7.6-11.3); Monocytes % 10.1 % (3.3-12.3); RBC Red Blood Cell Count 3.44 M/uL (4.33-5.43)
[2018-06-04 14:23] LABS: Albumin 2.3 g/dL (3.4-5.0); Bilirubin Direct 0.2 mg/dL (0-0.2); Bilirubin Total 0.6 mg/dL (0.2-1.0); Magnesium 2.1 mg/dL (1.8-2.4); Potassium 3.7 mmol/L (3.5-5.1); Protein, Total 7.5 g/dL (6.4-8.2); Troponin (Emerg Dept Use Only) 0.2 ng/mL (0.0-0.045)
--- NOTE | 2018-06-04 14:36 | RAD REPORT ---
EXAM DESCRIPTION: RAD - Chest Single View - 06/04/2018 2:12 pm CLINICAL HISTORY: Shortness of breath, decreased O2 saturation, chest pain COMPARISON: May 29 TECHNIQUE: AP portable chest image was obtained 1358 hours . FINDINGS: Lung volumes are relatively low but similar to the comparison. Interstitial and alveolar o pacification is present in the lower lung guaman, worse on the right. Heart size has increased slight ly. Trachea is midline. Mild vascular engorgement is seen. No pneumothorax present. Small bilateral p leural effusions suspected. No acute bony abnormality seen. No acute aortic findings suspected. IMPRESSION: Mild CHF/ volume overload pattern.
[2018-06-04 14:46] LABS: Protime INR 1.44
[2018-06-04] MEDS ORDERED: ENOXAPARIN 100 MG/ML SYR SQ ONE (15:03)
--- NOTE | 2018-06-04 15:42 | RAD REPORT ---
EXAM DESCRIPTION: US - Extrem Venous W Compress Juvenal - 06/04/2018 3:34 pm CLINICAL HISTORY: Leg pain and swelling COMPARISON: None. TECHNIQUE: Real-time sonographic evaluation of the bilateral lower extremity common femoral, superfi cial femoral, popliteal and posterior tibial veins was performed. FINDINGS: Normal compressibility, flow augmentation, phasic flow and spontaneous flow are identified in the left and right lower extremity common femoral, superficial femoral, popliteal and posterior t ibial veins. No intraluminal filling defects seen. IMPRESSION: No DVT in either lower extremity.
[2018-06-04] MEDS ORDERED: FENTANYL CITR 100 MCG/2 ML ONE (15:52)
[2018-06-04] MEDS ORDERED: NA CHLORIDE 0.9% 500 ML ONE (15:53)
[2018-06-04] MEDS ORDERED: NITROGLYCERIN 0.4 MG/TAB SL ONE (15:53)
--- NOTE | 2018-06-04 15:53 | RAD REPORT ---
EXAM DESCRIPTION: CT - Chest For Pe Angio - 06/04/2018 3:38 pm CLINICAL HISTORY: Chest pain radiating into the left arm COMPARISON: Chest films same date TECHNIQUE: Dynamically enhanced 3 mm thick images of the chest were obtained during administration o f approximately 150mL Isovue 370 IV contrast. Coronal and oblique MIP reconstruction images were gene rated and reviewed. Exam utilizes a protocol to evaluate the pulmonary arterial tree. All CT scans are performed using dose optimization technique as appropriate and may include automated exposure control or mA/KV adjustment according to patient size. FINDINGS: No pulmonary emboli are identified. The aorta as imaged shows no acute or suspicious finding. Minimal pericardial effusion. Moderate bilateral pleural effusions are present. There is partial atelectasis in each posterior lung base. Interstitial edema or thickening present. Motion degradation is present. No pneumothorax. No p leural based mass. No mediastinal or hilar suspicious masses. No chest wall masses or abnormal axillary lymphadenopathy. IMPRESSION: No pulmonary emboli identified. CHF/ volume overload pattern with moderate bilateral pleural effusions.
--- NOTE | 2018-06-04 15:54 | EDPHYS ---
Physician Documentation [facility] Name: Varun Kendrick Jr Age: 57 yrs Sex: Male : 1960 Arrival Date: 06/04/2018 Time: 13:32 Bed 4 Private MD: ED Physician Isaac Crow HPI: 06/04 13:41 This 57 yrs old Male presents to ER via EMS with complaints of Chest Pain. kdr 13:41 The patient or guardian reports chest pain that is located primarily in the anterior kdr chest wall, left. Onset: suddenly, 3.5 hour(s) ago. The pain radiates to the left arm, the left shoulder, the left scapula, left back. Associated signs and symptoms: Pertinent positives: diaphoresis, lower extremity swelling, nausea, shortness of breath. The chest pain is described as aching, burning, dull, squeezing. Duration: The patient or guardian reports a single episode, that is still ongoing, and worsening. Severity of pain: At its worst the pain was moderate severe just prior to arrival, in the emergency department the pain is unchanged. The patient has experienced a previous episode, last week, but today's symptoms are worse. The patient has been recently seen by a physician: Stent placed by Dr. Sanchez on the last few weeks. Historical: - Allergies: 13:39 Bactrim; hj - Home Meds: 13:39 aspirin 81 mg Oral TbEC 1 tab once daily [Active]; levofloxacin 500 mg Oral tab 1 tab hj once daily [Active]; metoprolol tartrate 25 mg Oral tab 1 tab once daily [Active]; metformin 500 mg Oral tab 1 tab 2 times per day [Active]; atorvastatin 40 mg oral tab 1 tab once daily [Active]; pantoprazole 40 mg oral TbEC 1 tab once daily [Active]; Humulin N Pen 100 unit/mL (3 mL) Sub-Q inpn [Active]; - PMHx: 13:39 Diabetes - NIDDM; Hypertension; hj - PSHx: 13:39 Heart stents; hj - Immunization history:: Adult Immunizations up to date. - Social history:: Smoking status: Patient/guardian denies using tobacco, Patient/guardian denies using alcohol. - Ebola Screening: : Patient negative for fever greater than or equal to 101.5 degrees Fahrenheit, and additional compatible Ebola Virus Disease symptoms Patient denies exposure to infectious person Patient denies travel to an Ebola-affected area in the 21 days before illness onset. ROS: 13:46 Constitutional: Negative for fever, chills, and weight loss, Eyes: Negative for injury, kdr pain, redness, and discharge, ENT: Negative for injury, pain, and discharge, Neck: Negative for injury, pain, and swelling, Abdomen/GI: Negative for abdominal pain, nausea, vomiting, diarrhea, and constipation, Back: Negative for injury and pain, : Negative for injury, bleeding, discharge, and swelling, Skin: Negative for injury, rash, and discoloration, Neuro: Negative for headache, weakness, numbness, tingling, and seizure activity. Psych: Negative for depression, anxiety, suicide ideation, homicidal ideation, and hallucinations, Allergy/Immunology: Negative for hives, rash, and allergies, Endocrine: Negative for neck swelling, polydipsia, polyuria, polyphagia, and marked weight changes, Hematologic/Lymphatic: Negative for swollen nodes, abnormal bleeding, and unusual bruising. 13:46 Cardiovascular: Positive for chest pain, edema, Negative for orthopnea, palpitations, paroxysmal nocturnal dyspnea. 13:46 Respiratory: Positive for dyspnea on exertion, shortness of breath, wheezing, Negative for hemoptysis, orthopnea, pleurisy. 13:46 MS/extremity: Positive for pain, swelling, of the right leg. Exam: 13:46 Constitutional: This is a well developed, well nourished patient who is awake, alert, kdr and in moderate distress. Head/Face: Normocephalic, atraumatic. Eyes: Pupils equal round and reactive to light, extra-ocular motions intact. Lids and lashes normal. Conjunctiva and sclera are non-icteric and not injected. Cornea within normal limits. Periorbital areas with no swelling, redness, or edema. Neck: Trachea midline, no thyromegaly or masses palpated, and no cervical lymphadenopathy. Supple, full range of motion without nuchal rigidity, or vertebral point tenderness. No Meningismus. Chest/axilla: Normal chest wall appearance and motion. Nontender with no deformity. No lesions are appreciated. Abdomen/GI: Soft, non-tender, with normal bowel sounds. No distension or tympany. No guarding or rebound. No evidence of tenderness throughout. Back: No spinal tenderness. No costovertebral tenderness. Full range of motion. Skin: Warm, dry with normal turgor. Normal color with no rashes, no lesions, and no evidence of cellulitis. Neuro: Awake and alert, GCS 15, oriented to person, place, time, and situation. Cranial nerves II-XII grossly intact. Motor strength 5/5 in all extremities. Sensory grossly intact. Cerebellar exam normal. Normal gait. Psych: Awake, alert, with orientation to person, place and time. Behavior, mood, and affect are within normal limits. 13:46 Cardiovascular: Rate: tachycardic, Rhythm: irregular, Pulses: no pulse deficits are appreciated, Edema: 4+ edema to level of right midcalf, right ankle, right foot and right toes, pedal edema, that is moderate. Vital Signs: 13:40 BP 139 / 60; Pulse 121; Resp 18; Temp 98.5(O); Pulse Ox 97% on 3 lpm NC; Weight 106.59 hj kg; Height 6 ft. 0 in. (182.88 cm); Pain 5/10; 13:57 BP 138 / 70; Pulse 112; Resp 18; Pulse Ox 99% on R/A; hj 14:37 BP 99 / 78; Pulse 108; Resp 18; Pulse Ox 96% on 3 lpm NC; hj 15:30 BP 105 / 84; Pulse 104; Resp 18; Pulse Ox 99% on 3 lpm NC; hj 16:00 BP 124 / 51; Pulse 100; Resp 18; Pulse Ox 99% on 3 lpm NC; hj 16:10 BP 105 / 46; Pulse 106; Resp 18; Pulse Ox 97% on 3 lpm NC; hj 16:31 BP 110 / 60; Pulse 98; Resp 18; Pulse Ox 98% on 3 lpm NC; hj 16:37 BP 107 / 62; Pulse 102; Resp 18; Pulse Ox 98% on 3 lpm NC; hj 17:02 BP 108 / 64; Pulse 111; Resp 18; Pulse Ox 98% on 3 lpm NC; hj 17:38 BP 107 / 59; Pulse 108; Resp 18; Pulse Ox 98% 3 lpm ; hj 13:40 Body Mass Index 31.87 (106.59 kg, 182.88 cm) MDM: 13:46 KRISTYN Risk Score: 1 - Three or more CAD risk factors, 1- Known CAD, 1 - ASA use in past kdr 7 days, 1 - Recent [<24hrs] Severe Angina. Data reviewed: vital signs, nurses notes, lab test result(s), EKG, radiologic studies. 15:53 Patient medically screened. [facility] 06/04 13:40 Order name: Basic Metabolic Panel; Complete Time: 14:46 kdr 06/04 13:40 Order name: CBC with Diff; Complete Time: 14:46 kdr 06/04 13:40 Order name: LFT's; Complete Time: 14:46 kdr 06/04 13:40 Order name: Magnesium; Complete Time: 14:46 kdr 06/04 13:40 Order name: NT PRO-BNP; Complete Time: 14:46 kdr 06/04 13:40 Order name: PT-INR; Complete Time: 15:11 kdr 06/04 13:40 Order name: Troponin (emerg Dept Use Only); Complete Time: 14:46 [facility] 06/04 13:40 Order name: XRAY Chest (1 view); Complete Time: 14:46 [facility] 06/04 13:40 Order name: DD; Complete Time: 15:11 [facility] 06/04 14:47 Order name: US Extremity Venous W Compression Juvenal kdr 06/04 15:02 Order name: CT Chest For PE Angio kdr 06/04 13:40 Order name: EKG; Complete Time: 13:41 kdr 06/04 13:40 Order name: Cardiac monitoring; Complete Time: 13:43 [facility] 06/04 13:40 Order name: EKG - Nurse/Tech; Complete Time: 13:43 kdr 06/04 13:40 Order name: IV Saline Lock; Complete Time: 13:44 kdr 06/04 13:40 Order name: Labs collected and sent; Complete Time: 13:44 kdr 06/04 13:40 Order name: O2 Per Protocol; Complete Time: 13:44 kdr 06/04 13:40 Order name: O2 Sat Monitoring; Complete Time: 13:44 kdr Administered Medications: 13:41 Drug: morphine 4 mg Route: IVP; Site: right antecubital; hj 14:38 Follow up: Response: No adverse reaction; Pain is decreased hj 13:43 Drug: Zofran 4 mg Route: IVP; Site: right antecubital; hb 14:38 Follow up: Response: No adverse reaction; Nausea is decreased hj 14:54 Drug: Lovenox 1 mg/kg Route: Sub-Q; Site: left lower abdomen; hj 14:58 Follow up: Response: No adverse reaction hj 15:50 Drug: Nitroglycerin 0.4 mg Route: Sublingual; hj 16:01 Follow up: Response: No adverse reaction; Pain is decreased hj 15:50 Drug: fentaNYL (PF) 50 mcg Route: IVP; Site: right antecubital; hj 16:01 Follow up: Response: No adverse reaction hj 15:50 Drug: NS 0.9% 500 ml Route: IV; Rate: bolus; Site: right antecubital; hj 16:02 Follow up: IV Status: Completed infusion Disposition: 06/04/18 15:53 Hospitalization ordered by Jena Sharp for Inpatient Admission. Preliminary diagnosis is Chest pain, unspecified. - Bed requested for Intensive Care Unit. - Status is Inpatient Admission. hb - Condition is Serious. - Problem is an acute exacerbation. - Symptoms have improved. UTI on Admission? No Signatures: Dispatcher [employer] EDPA Isaac Crow MD MD [facility] Benny Mesa RN RN Kisha Kaur RN RN hb Corrections: (The following items were deleted from the chart) 18:11 15:53 Hospitalization Ordered by Jena Sharp MD for Inpatient Admission. Preliminary hb diagnosis is Chest pain, unspecified. Bed requested for Intensive Care Unit. Status is Inpatient Admission. Condition is Serious. Problem is an acute exacerbation. Symptoms have improved. UTI on Admission? No. kdr
--- NOTE | 2018-06-04 15:54 | ER ---
Nurse's Notes [facility] Name: Varun Kendrick Jr Age: 57 yrs Sex: Male : 1960 Arrival Date: 06/04/2018 Time: 13:32 Bed 4 Private MD: Diagnosis: Chest pain, unspecified Presentation: 06/04 13:33 Presenting complaint: EMS states: chest pain started 3 hours ago, radiating to L arm; hj S/P stent x1 last 05/25/18; aspirin 81 mg x 4 given; 20 G L AC; BP- 128/55; HR- 120's; 94% RA; O2 3L- administered 99%; BGL- 144; pain is 5/10;'. Transition of care: patient was not received from another setting of care. Onset of symptoms was June 04, 2018. Risk Assessment: Do you want to hurt yourself or someone else? Patient reports no desire to harm self or others. Initial Sepsis Screen: Does the patient meet any 2 criteria? No. Patient's initial sepsis screen is negative. Does the patient have a suspected source of infection? No. Patient's initial sepsis screen is negative. Care prior to arrival: None. 13:33 Method Of Arrival: EMS: [facility] 13:33 Acuity: COLBY 3 hj Triage Assessment: 13:41 General: Appears in no apparent distress. uncomfortable, obese, Behavior is calm, hj cooperative, appropriate for age. Pain: Complains of pain in chest Pain radiates to left arm. EENT: No signs and/or symptoms were reported regarding the EENT system. Neuro: Level of Consciousness is awake, alert, obeys commands, Oriented to person, place, time, situation, Appropriate for age. Cardiovascular: Capillary refill < 3 seconds Patient's skin is warm and dry. Respiratory: Airway is patent Respiratory effort is even, unlabored, Respiratory pattern is regular, symmetrical. GI: No signs and/or symptoms were reported involving the gastrointestinal system. : No signs and/or symptoms were reported regarding the genitourinary system. Derm: No signs and/or symptoms reported regarding the dermatologic system. Musculoskeletal: No signs and/or symptoms reported regarding the musculoskeletal system. Historical: - Allergies: 13:39 Bactrim; hj - Home Meds: 13:39 aspirin 81 mg Oral TbEC 1 tab once daily [Active]; levofloxacin 500 mg Oral tab 1 tab hj once daily [Active]; metoprolol tartrate 25 mg Oral tab 1 tab once daily [Active]; metformin 500 mg Oral tab 1 tab 2 times per day [Active]; atorvastatin 40 mg oral tab 1 tab once daily [Active]; pantoprazole 40 mg oral TbEC 1 tab once daily [Active]; Humulin N Pen 100 unit/mL (3 mL) Sub-Q inpn [Active]; - PMHx: 13:39 Diabetes - NIDDM; Hypertension; hj - PSHx: 13:39 Heart stents; hj - Immunization history:: Adult Immunizations up to date. - Social history:: Smoking status: Patient/guardian denies using tobacco, Patient/guardian denies using alcohol. - Ebola Screening: : Patient negative for fever greater than or equal to 101.5 degrees Fahrenheit, and additional compatible Ebola Virus Disease symptoms Patient denies exposure to infectious person Patient denies travel to an Ebola-affected area in the 21 days before illness onset. Screenin:40 Abuse screen: Denies threats or abuse. Denies injuries from another. Nutritional hj screening: No deficits noted. Tuberculosis screening: No symptoms or risk factors identified. Fall Risk None identified. Assessment: 13:42 Pain: Pain began 3 hours ago. hj 13:42 Reassessment: see triage for assessment;. hj 15:05 Reassessment: technology education teacher wheeled to CT:. hj 16:10 Reassessment: Patient and/or family updated on plan of care and expected duration. Pain hj level reassessed. Patient is alert, oriented x 3, equal unlabored respirations, skin warm/dry/pink. pain relief post fentanyl and nitro;. 16:31 Reassessment: Patient and/or family updated on plan of care and expected duration. Pain hj level reassessed. Patient is alert, oriented x 3, equal unlabored respirations, skin warm/dry/pink. awaiting room placement;. 16:36 Reassessment: called Dr. Sharp for orders on meditech;. hj 17:02 Reassessment: still waiting for hospitalist to put orders on meditech;. hj 17:36 Reassessment: ICU nurse called for report and told her that orders are not on meditech hj yet; been waiting for it since 1700; ED nurse to call hospitalist again to ask for orders;. 18:19 Reassessment: report called; brought pt jessa. Vital Signs: 13:40 BP 139 / 60; Pulse 121; Resp 18; Temp 98.5(O); Pulse Ox 97% on 3 lpm NC; Weight 106.59 hj kg; Height 6 ft. 0 in. (182.88 cm); Pain 5/10; 13:57 BP 138 / 70; Pulse 112; Resp 18; Pulse Ox 99% on R/A; hj 14:37 BP 99 / 78; Pulse 108; Resp 18; Pulse Ox 96% on 3 lpm NC; hj 15:30 BP 105 / 84; Pulse 104; Resp 18; Pulse Ox 99% on 3 lpm NC; hj 16:00 BP 124 / 51; Pulse 100; Resp 18; Pulse Ox 99% on 3 lpm NC; hj 16:10 BP 105 / 46; Pulse 106; Resp 18; Pulse Ox 97% on 3 lpm NC; hj 16:31 BP 110 / 60; Pulse 98; Resp 18; Pulse Ox 98% on 3 lpm NC; hj 16:37 BP 107 / 62; Pulse 102; Resp 18; Pulse Ox 98% on 3 lpm NC; hj 17:02 BP 108 / 64; Pulse 111; Resp 18; Pulse Ox 98% on 3 lpm NC; hj 17:38 BP 107 / 59; Pulse 108; Resp 18; Pulse Ox 98% 3 lpm ; hj 13:40 Body Mass Index 31.87 (106.59 kg, 182.88 cm) ED Course: 13:32 Patient arrived in ED. hj 13:33 Isaac Crow MD is Attending Physician. kdr 13:35 Triage completed. hj 13:36 Inserted saline lock: 20 gauge in right antecubital area, using aseptic technique. kr2 Blood collected. 13:42 Oxygen administration via nasal cannula \T\ 3L/min. hj 13:42 Arm band placed on right wrist. hj 13:42 Patient has correct armband on for positive identification. Bed in low position. Call light in reach. Side rails up X 1. school bus monitor on. Pulse ox on. NIBP on. 13:43 Benny Mesa RN is Primary Nurse. hj 14:02 EKG done, by field technician. reviewed by Isaac Crow MD. sm3 14:09 X-ray completed. Portable x-ray completed in exam room. mh1 14:12 XRAY Chest (1 view) In Process Unspecified. EDMS 15:30 CT completed. Patient tolerated procedure well. Patient moved to CT via wheelchair. Patient moved back from CT. 15:33 US Extremity Venous W Compression Juvenal In Process Unspecified. EDMS 15:38 CT Chest For PE Angio In Process Unspecified. EDMS 15:48 EKG done, by ED staff, reviewed by Isaac Crow MD. dh3 15:52 Jena Sharp MD is Hospitalizing Provider. kdr 18:18 No provider procedures requiring assistance completed. Patient admitted, IV remains in hj place. intact. Administered Medications: 13:41 Drug: morphine 4 mg Route: IVP; Site: right antecubital; hj 14:38 Follow up: Response: No adverse reaction; Pain is decreased hj 13:43 Drug: Zofran 4 mg Route: IVP; Site: right antecubital; hb 14:38 Follow up: Response: No adverse reaction; Nausea is decreased hj 14:54 Drug: Lovenox 1 mg/kg Route: Sub-Q; Site: left lower abdomen; hj 14:58 Follow up: Response: No adverse reaction hj 15:50 Drug: Nitroglycerin 0.4 mg Route: Sublingual; hj 16:01 Follow up: Response: No adverse reaction; Pain is decreased hj 15:50 Drug: fentaNYL (PF) 50 mcg Route: IVP; Site: right antecubital; hj 16:01 Follow up: Response: No adverse reaction hj 15:50 Drug: NS 0.9% 500 ml Route: IV; Rate: bolus; Site: right antecubital; hj 16:02 Follow up: IV Status: Completed infusion hj Outcome: 15:53 Decision to Hospitalize by Provider. kdr 18:11 Patient left the ED. hb 18:18 Admitted to ICU accompanied by nurse, accompanied by trevor, via stretcher, room 3, with oxygen, on monitor, with chart, Report called to SHADY Khanna 18:18 Condition: stable 18:18 Instructed on the need for admit, Demonstrated understanding of instructions. Signatures: Dispatcher [employer] EDUT Isaac Crow MD MD [facility] Dottie James 1 Arin Quesada Benny Mesa RN RN Kisha Perrin, RN RN Lucie Mazariegos 3 Fallon Gil RN RN kr2 Keila Irwin 3
--- NOTE | 2018-06-04 16:52 | EKG ---
Test Date: 2018-06-04 Test Time: 13:43:23 Teacher Emotionally Impaired: JEAN PAUL MEASUREMENT RESULTS: Intervals: Rate: 115 CA: 144 QRSD: 86 QT: 338 QTc: 467 [place]: P: 60 CA: 144 QRS: 69 T: 15 INTERPRETIVE STATEMENTS: Sinus tachycardia with premature atrial complexes Possible Left atrial enlargement Borderline ECG Compared to ECG 05/25/2018 19:54:09 Atrial premature complex(es) now present ST (T wave) deviation no longer present Possible ischemia no longer present Electronically Signed On 06-04-18 16:51:45 CDT by Gopal Saenz
[2018-06-04] MEDS ORDERED: ALBUTEROL INHALER 60 PUFF/8 GM IH PRN (18:44)
--- NOTE | 2018-06-04 18:44 | P.HP ---
Certification for Inpatient With expected LOS: >2 Midnights Practitioner: I am a practitioner with admitting privileges, knowledge of patient current condition, hospital course, and medical plan of care. Services: Services provided to patient in accordance with Admission requirements found in Title 42 Section 412.3 of the Code of Federal Regulations Patient History Date of Service: 06/05/18 Reason for admission: Chest pain after stent placement 10 days ago History of Present Illness: 57 yrs old gentleman admitted with complaints of Chest Pain. Per patient, chest pain is located primarily in the left anterior chest wall. Patient states that the chest pain started acutely at 9:00 a.m. this morning when he was sitting out on the porch, without exertion. The pain was located on the left side of the wall of chest wall and it radiated down the left arm, the left shoulder, the left scapula, left back. He also stated that he had numbness on his left wrist and down. He describes his pain as sharp. This pain was associated with shortness of breath. He also endorses 1 episode of vomiting last night. Currently denies any nausea or vomiting, diaphoresis, dizziness, acute vision changes, fevers. Of note, patient had coronary stent placed here on May 25. He was discharged from the hospital on May 29. States that the 1st 2 days he he was fine but 4 days ago this pain started and had been intermittent until this morning. Upon my examination in the ED, pt was sitting forward, in moderate amount of distress 2/2 pain. Allergies sulfamethoxazole [From Bactrim] Allergy (Verified 05/25/18 18:06) Hives/Rash trimethoprim [From Bactrim] Allergy (Verified 05/25/18 18:06) Hives/Rash Home medications list reviewed: Yes Home Medications: Albuterol Sulfate [Proair Respiclick] 1 in IH TIDP PRN 06/04/18 Aspirin [Aspirin EC 325 MG] 1 tab PO DAILY 06/04/18 Atorvastatin Calcium 40 mg PO BEDTIME 06/04/18 Insulin NPH Human Isophane [Humulin N] 20 units SQ BID 06/04/18 Metformin HCl [Glucophage*] 1 tab PO BID 06/04/18 Metoprolol Tartrate 12.5 mg PO DAILY 06/04/18 Pantoprazole Sodium 40 mg PO DAILY 06/04/18 levoFLOXacin [Levaquin*] 500 mg PO DAILY 06/04/18 - Past Medical/Surgical History Has patient received pneumonia vaccine in the past: No Diabetic: Yes -: staph infection in left thigh -: HTN -: left hip replacement -: right ankle surgery with screws - Family History Father -: Heart disease Notes: from heart attack at age 49 Mother -: Heart disease Brother -: Heart disease Notes: cardiac stents - Social History Smoking Status: Former smoker Alcohol use: Yes CD- Drugs: No Caffeine use: Yes Place of Residence: Home Review of Systems General: Unremarkable Eyes: Unremarkable ENT: Unremarkable Respiratory: Shortness of Breath, SOB with Excertion Cardiovascular: Chest Pain, Light Headedness Gastrointestinal: Unremarkable Genitourinary: Unremarkable Musculoskeletal: Unremarkable Neurological: Numbness Physical Examination - Vital Signs Temperature: 98.5 F Blood Pressure: 111/63 Pulse: 111 Respirations: 31 Pulse Ox (%): 96 - Physical Exam General: Alert, Oriented x3, Moderate distress HEENT: Atraumatic, PERRLA, Mucous membr. moist/pink, EOMI, Sclerae nonicteric Neck: Supple, 2+ carotid pulse no bruit, Without JVD or thyroid abnormality Respiratory: Clear to auscultation bilaterally, Normal air movement Cardiovascular: Normal S1 S2, Irregular heart rate/rhythm (tachy) Gastrointestinal: Normal bowel sounds, No tenderness Musculoskeletal: No tenderness, Swelling (4+ right LE edema) Integumentary: No rashes Neurological: Normal gait, Normal speech, Normal strength at 5/5 x4 extr, Normal tone, Normal affect Lymphatics: No axilla or inguinal lymphadenopathy - Studies Laboratory Data (last 24 hrs) 06/04/18 13:35: PT 17.0 H, INR 1.44 06/04/18 13:35: WBC 12.9 H D, Hgb 11.3 L, Hct 32.8 L, Plt Count 407 H D 06/04/18 13:35: Sodium 140, Potassium 3.7, BUN 14, Creatinine 1.20, Glucose 137 H, Magnesium 2.1, Total Bilirubin 0.6, AST 30, ALT 19, Alkaline Phosphatase 117 Assessment and Plan - Problems (Diagnosis) (1) Chest pain Onset Date: 06/05/18 Current Visit: Yes Status: Acute Plan: Patient admitted for chest pain. Patient had a recent carotid stent placement [address] gomes. 1. Admit to the ICU. 2. EKG with nonspecific changes. CT chest, thorax negative for any acute abnormalities. Extremity venous studies negative for DVT. Chest x-ray negative for any acute abnormality. 3. Will monitor patient on tele. 4. Echo ordered. 5. Dr. Saenz, cardiology consulted. 6. pain control (2) Stented coronary artery Onset Date: 06/05/18 Current Visit: Yes Status: Acute (3) Diabetes mellitus type 2 in obese Onset Date: 06/05/18 Current Visit: Yes Status: Acute Plan: Patient with newly diagnosed diabetes. Will restart home insulin. Will start Accu-Cheks and sliding scale insulin. Will monitor glucose and adjust as needed. - Advance Directives Does patient have a Living Will: No Does patient have a Durable POA for Healthcare: No
[2018-06-04] MEDS ORDERED: MORPHINE 4 MG/ML SYR IV PRN (18:50)
[2018-06-04 19:43] LABS: CKMB Creatine Kinase MB 1.4 ng/mL (0.3-3.6); Troponin I 0.21 ng/mL (0.0-0.045)
[2018-06-04] MEDS: INSULIN -REGULAR HUMAN 50 UNIT/0.5 ML ML SQ SCH (19:54)
[2018-06-04] MEDS: ATORVASTATIN 40 MG TAB PO SCH (20:09)
[2018-06-04] MEDS: NPH (HUMAN) 100 UNITS/ML INSULIN SQ SCH (20:10)
[2018-06-04] MEDS: NITROGLYCERIN 0.4 MG/TAB SL PRN (22:11)
[2018-06-04] MEDS ORDERED: MORPHINE 4 MG/ML SYR IM PRN ×2 (22:18)
[2018-06-04 23:58] LABS: Urine Appearance CLEAR; Urine Bilirubin NEGATIVE (NEG); Urine Blood NEGATIVE (NEG); Urine Color YELLOW; Urine Glucose NEGATIVE (NEG); Urine Protein TRACE (NEG); Urine Specific Gravity >=1.030 (1.005-1.030); Urine Urobilinogen 0.2 mg/dL (0.2-1.0); Urine pH 5.5 (5.0-7.0)
[2018-06-05 01:18] LABS: Urine Bacteria <20 /HPF (NONE SEEN); Urine Culture Reflex Order NOT NEEDED; Urine RBC NONE SEEN /HPF (NONE SEEN)
[2018-06-05] MEDS: MORPHINE 4 MG/ML SYR IV PRN ×5 (02:16→20:03)
[2018-06-05] MEDS: NITROGLYCERIN 0.4 MG/TAB SL PRN ×3 (04:12→04:24)
[2018-06-05 05:24] LABS: Absolute Lymphocytes (CBC) 2.3 K/uL (0.7-4.9); Basophils % 0.7 % (0-1.3); Eosinophils % 0.5 % (0-4.4); Hematocrit 28.5 % (39.6-49.0); MCH 33.6 pg (27.0-35.0); MCV 96.4 fL (80-100); MPV 8.1 fL (7.6-11.3); Monocytes % 8.6 % (3.3-12.3); RBC Red Blood Cell Count 2.96 M/uL (4.33-5.43)
[2018-06-05 05:56] LABS: Bilirubin Total 0.5 mg/dL (0.2-1.0); Potassium 3.7 mmol/L (3.5-5.1); Protein, Total 6.5 g/dL (6.4-8.2)
[2018-06-05] MEDS: ONDANSETRON 4 MG/2 ML VIAL IV PRN ×3 (06:11→19:56)
[2018-06-05] MEDS: INSULIN -REGULAR HUMAN 50 UNIT/0.5 ML ML SQ SCH ×4 (07:30→20:46)
--- NOTE | 2018-06-05 08:16 | EKG ---
Test Date: 2018-06-04 Test Time: 15:44:56 Wellness Specialist: DENNISE MEASUREMENT RESULTS: Intervals: Rate: 113 UT: 146 QRSD: 92 QT: 342 QTc: 469 [place]: P: 52 UT: 146 QRS: 71 T: -23 INTERPRETIVE STATEMENTS: Sinus tachycardia Possible Left atrial enlargement ST & T wave abnormality, consider inferior ischemia Abnormal ECG Compared to ECG 06/04/2018 13:43:23 ST (T wave) deviation now present Possible ischemia now present Atrial premature complex(es) no longer present Electronically Signed On 06-05-18 08:15:27 CDT by Gopal Saenz
[2018-06-05] MEDS: levoFLOXacin 500 MG TAB PO SCH (08:39)
[2018-06-05] MEDS: FUROSEMIDE 40 MG/4 ML VIAL IV SCH ×2 (08:39→17:16)
[2018-06-05] MEDS: PANTOPRAZOLE 40MG TABLET PO SCH (08:40)
[2018-06-05] MEDS: NPH (HUMAN) 100 UNITS/ML INSULIN SQ SCH ×2 (08:45→20:45)
[2018-06-05] MEDS: ASPIRIN EC 325 MG TABLET PO SCH (08:45)
[2018-06-05] MEDS ORDERED: POTASSIUM 25 MEQ EFFERV TAB PO ONE (09:00)
[2018-06-05] MEDS ORDERED: METOPROLOL TAR 25 MG TAB PO SCH (09:00)
[2018-06-05] MEDS ORDERED: METHYLPREDNISOLONE 125 MG INJ IV ONE (09:00)
[2018-06-05] MEDS ORDERED: ASPIRIN EC 325 MG TABLET PO SCH (09:00)
--- NOTE | 2018-06-05 10:05 | ECHO ---
HEIGHT: 6 ft 0 in WEIGHT: 235 lb 0 oz DATE OF STUDY: 06/05/[address]: Jena Sharp MD 2-DIMENSIONAL: YES M.MODE: YES DOPPLER: YES COLOR FLOW: YES TDS: PORTABLE: YES DEFINITY: BUBBLE STUDY: DIAGNOSIS: CHEST PAIN CARDIAC HISTORY: CATHERIZATION: SURGERY: PROSTHETIC VALVE: PACEMAKER: MEASUREMENTS (cm) DIASTOLIC (NORMALS) SYSTOLIC (NORMALS) IVSd 1.1 (0.6-1.2) LA Diam 5.8 (1.9-4.0) LVEF 62% LVIDd 5.8 (3.5-5.7) LVIDs 3.8 (2.0-3.5) %FS 34% LVPWd 1.1 (0.6-1.2) Ao Diam 2.6 (2.0-3.7) 2 DIMENSIONAL ASSESSMENT: RIGHT ATRIUM: DILATED LEFT ATRIUM: DILATED RIGHT VENTRICLE: NORMAL LEFT VENTRICLE: NORMAL TRICUSPID VALVE: NORMAL MITRAL VALVE: NORMAL PULMONIC VALVE: NORMAL AORTIC VALVE: NORMAL PERICARDIAL EFFUSION: NONE AORTIC ROOT: NORMAL LEFT VENTRICULAR WALL MOTION: NORMAL DOPPLER/COLOR FLOW: MILD MITRAL REGURGITATION. MODERATE TRICUSPID REGURGITATION. ESTIMATED RIGHT VENTRICULAR SYSTOLIC PRESSURE 50 mmHg. COMMENTS: NORMAL LEFT VENTRICULAR EJECTION FRACTION. DILATED LEFT AND RIGHT ATRIUM. MILD MITRAL REGURGITATION. MODERATE TRICUSPID REGURGITATION. MODERATE PULMONARY HYPERTENSION. TECHNOLOGIST: NJ OWENS
--- NOTE | 2018-06-05 12:51 | P.PN ---
Subjective Date of Service: 06/05/18 Chief Complaint: Chest pain after stent placement 10 days ago Patient seen and examined at bedside, no family at bedside. Patient sitting up in bed, eating breakfast. Mild distress 2/2 pain. Patient reports improved pain, though states it comes and goes. Tolerating diet without nausea/ vomiting. Tachy overnight, otherwise BP stable. Review of Systems Cardiovascular: Chest Pain Physical Examination - Vital Signs Temperature: 98.5 F Blood Pressure: 111/63 Pulse: 111 Respirations: 31 Pulse Ox (%): 96 - Physical Exam General: Oriented x3, Mild distress HEENT: Atraumatic, PERRLA, EOMI Neck: Supple, JVD not distended Respiratory: Clear to auscultation bilaterally, Normal air movement Cardiovascular: Normal S1 S2, Irregular heart rate/rhythm (Tachycardic) Gastrointestinal: Normal bowel sounds, No tenderness Musculoskeletal: No tenderness Integumentary: No rashes Neurological: Normal speech, Normal tone, Normal affect Lymphatics: No axilla or inguinal lymphadenopathy - Studies Laboratory Data (last 24 hrs) 06/04/18 13:35: PT 17.0 H, INR 1.44 06/04/18 13:35: WBC 12.9 H D, Hgb 11.3 L, Hct 32.8 L, Plt Count 407 H D 06/04/18 13:35: Sodium 140, Potassium 3.7, BUN 14, Creatinine 1.20, Glucose 137 H, Magnesium 2.1, Total Bilirubin 0.6, AST 30, ALT 19, Alkaline Phosphatase 117 Assessment And Plan - Current Problems (Diagnosis) (1) Chest pain Onset Date: 06/05/18 Current Visit: Yes Status: Acute Plan: Likely 2/2 pericarditis post surgery. - Start steroids (solumedrol) and add ibuprofen for pain/inflammatory control - Admitted to the ICU. Will monitor this afternoon, if remains HDS, will transfer to the floor w/ tele. - EKG with nonspecific changes. CT chest, thorax negative for any acute abnormalities. Extremity venous studies negative for DVT. Chest x-ray negative for any acute abnormalities. - Echo ordered. - Dr. Saenz, cardiology consulted. Recommendations appreciated. (2) Tachycardia Current Visit: Yes Status: Acute Plan: Tachycardia, improving Increase metoprolol dosage to 25 mg BID (3) Leukocytosis Current Visit: Yes Status: Acute (4) Stented coronary artery Onset Date: 06/05/18 Current Visit: Yes Status: Acute Plan: Troponins stable, BNP improving. (5) Diabetes mellitus type 2 in obese Onset Date: 06/05/18 Current Visit: Yes Status: Acute Plan: Patient with newly diagnosed diabetes. Will restart home insulin. Will start Accu-Cheks and sliding scale insulin. Will monitor glucose and adjust as needed. (6) Right lower lobe pneumonia Current Visit: No Status: Resolved Plan: Patient was diagnosed with RLL PNA at last visit, was started on levaquin at that time and discharged with a 11 day course. D/C levaquin on 06/09/2018 - Plan Likely 2/2 pericarditis. Will continue to monitor.
[2018-06-05] MEDS: IBUPROFEN 400 MG TAB PO PRN ×2 (12:56→22:57)
--- NOTE | 2018-06-05 14:03 | CON ---
Chief Complaint: Chest pain. History Of Present Illness: Mr. Kendrick was in our hospital about 10 days ago. He had chest pain. H is troponins were slightly elevated. It was associated with a staph infection and when we did a card iac cath, the results of that were entirely normal. He had minimal coronary plaque. No stenosis. Sharon espitia told the ER doctor he had a stent, but that is an error. He failed to understand things after his heart catheterization and at the time of discharge, he did not have a stent. He had minimal coronary plaque, normal ejection fraction. Now he returns with chest pain. It is highly pleuritic. If he t akes a breath, this hurts. If he lays back, it hurts, and he has a very prominent pericardial fricti on rub. An echocardiogram has not been done as of this point. Physical Examination: General: He seems to be in pain, but he is alert, oriented, pleasant. Vital Signs: Blood pressure is 107/63, heart rate 100. Pericardial friction rub. Lungs: Clear. Extremities: Mild edema. No cyanosis or clubbing. Abdomen: Soft. Impression: The pain is from pericardial friction rub, it is not an acute CT. We do not need to do another heart catheterization. Right now, I want to do a stat echo, make sure he is not in pericardi al tamponade, but that would be unusual with somebody having this much of a rub, usually tamponade brewer s so much fluid, you cannot hear a rub, but we will do an echo stat, make sure that is not the issue. Relieve his pain with steroids, first IV a nd then oral if it seems to help. REDDY/SOFIA Voice ID: [id number] Report ID: [id number]
--- NOTE | 2018-06-05 14:28 | EKG ---
Test Date: 2018-06-04 Test Time: 19:33:42 Steel Erector Apprentice: RT-O MEASUREMENT RESULTS: Intervals: Rate: 106 TX: 148 QRSD: 92 QT: 364 QTc: 483 [place]: P: 64 TX: 148 QRS: 74 T: 27 INTERPRETIVE STATEMENTS: Sinus tachycardia Possible Left atrial enlargement Borderline ECG Compared to ECG 06/04/2018 15:44:56 ST (T wave) deviation no longer present Possible ischemia no longer present Electronically Signed On 06-05-18 14:26:39 CDT by Gopal Saenz
[2018-06-05] MEDS: METOPROLOL TAR 25 MG TAB PO SCH (17:17)
[2018-06-05] MEDS: ACETAMINOPHEN 500 MG TAB PO PRN (18:33)
[2018-06-05] MEDS: ATORVASTATIN 40 MG TAB PO SCH (19:50)
[2018-06-05] MEDS: BISACODYL E.C. 5 MG TAB PO PRN (19:50)
[2018-06-05] MEDS ORDERED: COLCHICINE 0.6 MG TAB PO PRN (23:23)
[2018-06-06] MEDS: MORPHINE 4 MG/ML SYR IV PRN ×4 (01:19→19:18)
[2018-06-06] MEDS: ONDANSETRON 4 MG/2 ML VIAL IV PRN ×3 (02:57→20:10)
[2018-06-06 04:57] LABS: Absolute Monocytes 1.1 K/uL (0.1-1.3); Absolute Neutrophil 13.6 K/uL (1.8-8.0); Basophils % 0.3 % (0-1.3); Eosinophils % 0.1 % (0-4.4); Hematocrit 29.2 % (39.6-49.0); Lymphocytes % 11.8 % (15.3-44.8); MCH 33.6 pg (27.0-35.0); MCV 95.3 fL (80-100); MPV 8.2 fL (7.6-11.3); Monocytes % 6.8 % (3.3-12.3); RBC Red Blood Cell Count 3.07 M/uL (4.33-5.43)
[2018-06-06 05:08] LABS: Albumin 2.3 g/dL (3.4-5.0); Bilirubin Total 0.5 mg/dL (0.2-1.0); Potassium 4.4 mmol/L (3.5-5.1)
[2018-06-06] MEDS: METOPROLOL TAR 25 MG TAB PO SCH ×2 (05:42→18:00)
[2018-06-06 06:03] VITALS: BMI 32.9
[2018-06-06] MEDS: INSULIN -REGULAR HUMAN 50 UNIT/0.5 ML ML SQ SCH ×4 (07:30→20:08)
[2018-06-06] MEDS: FUROSEMIDE 40 MG/4 ML VIAL IV SCH (07:59)
[2018-06-06] MEDS: levoFLOXacin 500 MG TAB PO SCH (07:59)
[2018-06-06] MEDS: predniSONE 20 MG TAB PO SCH (08:00)
[2018-06-06] MEDS: ASPIRIN EC 325 MG TABLET PO SCH (08:00)
[2018-06-06] MEDS: NPH (HUMAN) 100 UNITS/ML INSULIN SQ SCH ×2 (08:00→20:25)
[2018-06-06] MEDS: PANTOPRAZOLE 40MG TABLET PO SCH (08:00)
[2018-06-06] MEDS: BISACODYL E.C. 5 MG TAB PO PRN (08:22)
--- NOTE | 2018-06-06 12:04 | P.PN ---
Subjective Date of Service: 06/06/18 Chief Complaint: Chest pain after stent placement 10 days ago Patient seen and examined at bedside, no family at bedside. Patient sitting up in bed, eating breakfast. Mild distress 2/2 pain. Patient reports improved pain, though states it comes and goes. Tolerating diet without nausea/ vomiting. Tachy overnight, otherwise BP stable. Physical Examination - Vital Signs Temperature: 97.7 F Blood Pressure: 114/69 Pulse: 96 Respirations: 18 Pulse Ox (%): 95 Assessment And Plan - Current Problems (Diagnosis) (1) Chest pain Onset Date: 06/05/18 Current Visit: Yes Status: Acute Plan: Likely 2/2 pericarditis post surgery. - Start steroids (solumedrol) and add ibuprofen for pain/inflammatory control - transfer to floor - EKG with nonspecific changes. CT chest, thorax negative for any acute abnormalities. Extremity venous studies negative for DVT. Chest x-ray negative for any acute abnormalities. - Dr. Saenz, cardiology consulted. Recommendations appreciated. - Repeat chest xray today (2) Tachycardia Current Visit: Yes Status: Acute Plan: Tachycardia, improving Increase metoprolol dosage to 25 mg BID (3) Leukocytosis Current Visit: Yes Status: Acute (4) Stented coronary artery Onset Date: 06/05/18 Current Visit: Yes Status: Acute Plan: Troponins stable, BNP improving. (5) Diabetes mellitus type 2 in obese Onset Date: 06/05/18 Current Visit: Yes Status: Acute Plan: Patient with newly diagnosed diabetes. Will restart home insulin. Will start Accu-Cheks and sliding scale insulin. Will monitor glucose and adjust as needed. (6) Acute kidney injury Current Visit: Yes Status: Acute Plan: Cr increased to 2.7, likely 2/2 lasix will repeat cxr Hold lasix tonight, will decrease to once a day. - Plan Likely 2/2 pericarditis. Will continue to monitor.
[2018-06-06] MEDS: IBUPROFEN 400 MG TAB PO PRN (12:35)
[2018-06-06] MEDS ORDERED: BISACODYL 10 MG RECTAL SUPP PR ONE (13:00)
--- NOTE | 2018-06-06 14:40 | PN ---
Mr. Kendrick's pain is better. We will continue with colchicine and steroids. He could probably stand a little more diuresis. Again, he does not have coronary heart disease, we proved that with a cardi ac cath. He still has the friction rub today, but is much more comfortable. ERICA Voice ID: [id number] Report ID: [id number]
--- NOTE | 2018-06-06 14:42 | RAD REPORT ---
EXAM DESCRIPTION: RAD - Chest Single View - 06/06/2018 1:59 pm CLINICAL HISTORY: CHF, shortness of breath COMPARISON: June 04 TECHNIQUE: AP portable chest image was obtained 1344 hours . FINDINGS: Cardiomegaly and vascular engorgement are still present and may be slightly worse. Interst itial and patchy alveolar edema also seen as similar or perhaps fractionally worse in the mid right l mitch field. Trachea is midline. Bilateral pleural effusions are present probably increased from compar alycia. No acute bony abnormality seen. No acute aortic findings suspected. IMPRESSION: CHF/volume overload findings are present similar or slightly worse than seen June 04.
[2018-06-06] MEDS: ATORVASTATIN 40 MG TAB PO SCH (20:10)
[2018-06-07] MEDS: MORPHINE 4 MG/ML SYR IV PRN ×4 (02:31→22:29)
[2018-06-07] MEDS: ONDANSETRON 4 MG/2 ML VIAL IV PRN ×2 (04:56→23:21)
[2018-06-07] MEDS: METOPROLOL TAR 25 MG TAB PO SCH ×2 (05:45→18:00)
[2018-06-07 06:45] LABS: Absolute Lymphocytes (CBC) 1.2 K/uL (0.7-4.9); Absolute Monocytes 0.9 K/uL (0.1-1.3); Absolute Neutrophil 10.9 K/uL (1.8-8.0); Basophils % 0.1 % (0-1.3); Eosinophils % 0.1 % (0-4.4); Hematocrit 27.9 % (39.6-49.0); Lymphocytes % 9.1 % (15.3-44.8); MCV 94.7 fL (80-100); MPV 8.1 fL (7.6-11.3); Monocytes % 6.8 % (3.3-12.3); RBC Red Blood Cell Count 2.95 M/uL (4.33-5.43)
[2018-06-07 07:05] LABS: Albumin 2.1 g/dL (3.4-5.0); Bilirubin Total 0.5 mg/dL (0.2-1.0); Magnesium 2.1 mg/dL (1.8-2.4); Phosphorus 6.1 mg/dL (2.5-4.9); Potassium 4.2 mmol/L (3.5-5.1); Protein, Total 6.9 g/dL (6.4-8.2)
[2018-06-07] MEDS: IBUPROFEN 400 MG TAB PO PRN (07:38)
[2018-06-07] MEDS: ASPIRIN EC 325 MG TABLET PO SCH (08:17)
[2018-06-07] MEDS: predniSONE 20 MG TAB PO SCH (08:17)
[2018-06-07] MEDS: levoFLOXacin 500 MG TAB PO SCH (08:17)
[2018-06-07] MEDS: PANTOPRAZOLE 40MG TABLET PO SCH (08:17)
[2018-06-07] MEDS: INSULIN -REGULAR HUMAN 50 UNIT/0.5 ML ML SQ SCH ×4 (08:18→21:32)
[2018-06-07] MEDS: NPH (HUMAN) 100 UNITS/ML INSULIN SQ SCH ×2 (09:13→21:32)
[2018-06-07] MEDS ORDERED: COLCHICINE 0.6 MG TAB PO PRN (09:43)
--- NOTE | 2018-06-07 10:07 | RAD REPORT ---
EXAM DESCRIPTION: RAD - Chest Single View - 06/07/2018 9:58 am CLINICAL HISTORY: chest pain Chest pain. COMPARISON: Chest Single View dated 06/06/2018; Chest Single View dated 06/04/2018; Chest Pa And Lat (2 Views) dated 05/29/2018; Chest Pa And Lat (2 Views) dated 05/28/2018; Chest For Pe Angio dated 05/25 FINDINGS: Portable technique limits examination quality. Mild bilateral pulmonary opacities persists likely representing pulmonary edema. Findings appear esse ntially stable since the comparative study. Bilateral pleural effusions are noted, slightly greater o n the left. The heart is moderately enlarged in size. No displaced fractures. IMPRESSION: Mild CHF versus volume overload pattern, stable.
[2018-06-07 10:29] LABS: CKMB Creatine Kinase MB 6.7 ng/mL (0.3-3.6)
[2018-06-07 10:41] LABS: Troponin I 0.81 ng/mL (0.0-0.045)
[2018-06-07] MEDS: FUROSEMIDE 40 MG/4 ML VIAL IV SCH ×2 (10:45→17:00)
[2018-06-07] MEDS ORDERED: LIDOCAINE 1% MPF 5 ML VIAL ONE (11:36)
[2018-06-07 11:54] LABS: Protime INR 1.5
[2018-06-07] MEDS ORDERED: HEPARIN/D5W 25,000 UNIT/500 ML BAG IV SCH (12:00)
--- NOTE | 2018-06-07 13:07 | RAD REPORT ---
EXAM DESCRIPTION: US - Extremity Venous Uni Ltd - 06/07/2018 12:40 pm CLINICAL HISTORY: R/O DVT Leg swelling and edema. COMPARISON: Extrem Venous W Compress Juvenal dated 06/04/2018 FINDINGS: Right lower extremity venous system was interrogated with Doppler technique. Normal flow, compressibility and augmentation was noted. There is no DVT present. IMPRESSION: No evidence of right lower extremity deep venous thrombosis. Edema is present in the juanpablo f.
[2018-06-07] MEDS ORDERED: ALBUMIN HUMAN 25% 100 ML IV ONE (13:34)
[2018-06-07] MEDS: ACETAMINOPHEN 500 MG TAB PO PRN (14:09)
[2018-06-07] MEDS ORDERED: NA CHLORIDE 0.9% 1,000 ML IV PRN (14:20)
[2018-06-07] MEDS ORDERED: ALBUMIN HUMAN 25% 50 ML IV SCH (15:00)
[2018-06-07] MEDS ORDERED: Pharmacy Consult 1 EA XX PRN (15:43)
--- NOTE | 2018-06-07 15:53 | PN ---
History Of Present Illness: Mr. Kendrick seemed to be recovering. Recently, he has had a cardiac cath that showed minimal CAD and he developed pericarditis. He had a feeling it was secondary to a recen t infection with staph, although not a staph infection around his heart. There was no fluid collecti on on echo. He responded to steroids and colchicine, but suddenly this morning had onset of sudden c hest pain, pleuritic, much like he had before. CT scan of the chest when he came in was negative for PE; however, we were very suspicious that this was an acute pulmonary embolus. He has been in the h ospital about 5 days. He had some anticoagulant, but it apparently was not extended for the night be fore this event. Physical Examination: General: He is 6 feet tall. His stated weight is 243, but I think he has lost quite a bit of weight since he came in. Lungs: Clear. Heart Exam: Within normal limits except for the friction rub which continues; it is a 3-component fr iction rub. Extremities: Reveal mild edema, left is worse than the right. Assessment And Plan: I suspect he may have had a pulmonary embolus, and I will treat him with hepari n, try to get an imaging study to see if we can prove whether or not he had a pulmonary embolus. His creatinine is 3.4, so it is very likely he will need dialysis as well. He has deteriorated in many ways very rapidly. I think what really changed this morning was an acute pulmonary embolus. REDDY/SOFIA Voice ID: [id number] Report ID: [id number]
[2018-06-07] MEDS ORDERED: NOREPINEPHRINE 4 MG in D5W 250 ML IV PRN (16:02)
[2018-06-07] MEDS ORDERED: VANCOMYCIN/NS 1 gm 1 GM/250 ML BAG IV SCH (16:15)
[2018-06-07 16:47] LABS: CKMB Creatine Kinase MB 5.4 ng/mL (0.3-3.6)
[2018-06-07] MEDS ORDERED: VANCOMYCIN 2 GM in NA CHLORIDE 0.9% 500 ML IVPB SCH ×4 (17:00)
--- NOTE | 2018-06-07 17:02 | P.CNS ---
Date of Consult: 06/07/18 Reason for Consult: FADY Chief Complaint: Chest pain after stent placement 10 days ago Allergies sulfamethoxazole [From Bactrim] Allergy (Verified 05/25/18 18:06) Hives/Rash trimethoprim [From Bactrim] Allergy (Verified 05/25/18 18:06) Hives/Rash Home Medications: Albuterol Sulfate [Proair Respiclick] 1 in IH TIDP PRN 06/04/18 Aspirin [Aspirin EC 325 MG] 1 tab PO DAILY 06/04/18 Atorvastatin Calcium 40 mg PO BEDTIME 06/04/18 Insulin NPH Human Isophane [Humulin N] 20 units SQ BID 06/04/18 Metformin HCl [Glucophage*] 1 tab PO BID 06/04/18 Metoprolol Tartrate 12.5 mg PO DAILY 06/04/18 Pantoprazole Sodium 40 mg PO DAILY 06/04/18 levoFLOXacin [Levaquin*] 500 mg PO DAILY 06/04/18 - Past Medical/Surgical History Diabetic: Yes -: staph infection in left thigh -: HTN -: left hip replacement -: right ankle surgery with screws - Family History Father Medical History: Heart disease Notes: from heart attack at age 49 Mother Medical History: Heart disease Brother Medical History: Heart disease Notes: cardiac stents - Social History Smoking Status: Current every day smoker Alcohol use: Yes CD- Drugs: No Caffeine use: Yes Place of Residence: Home Physical Examination Temp Pulse Resp BP Pulse Ox 98.8 F 106 H 26 H 102/59 L 97 06/07/18 09:00 06/07/18 15:00 06/07/18 15:00 06/07/18 15:00 06/07/18 15:00 General: Moderate distress, Severe distress HEENT: Atraumatic Respiratory: Crackles/rales Cardiovascular: Edema Gastrointestinal: Normal bowel sounds - Problems (1) Acute kidney injury Current Visit: Yes Status: Acute (2) Chest pain Onset Date: 06/05/18 Current Visit: Yes Status: Acute (3) Diabetes mellitus type 2 in obese Onset Date: 06/05/18 Current Visit: Yes Status: Acute Conclusions/Impression: Pt was in severe distress, couldnt provide a detailed HX , Hx obtained from chart A 57 yrs old man with PMHX of HTN, DM on metformin and CAD s/p PCI on 05/2018 Pt was admitted for chest pain and SOB Pt recently had cardiac cath with PCI in May 25 this admission, Pt presented with SOB, noticed to have tachycardia, CXR in ER mild effusion CR 1.1>Contrast>1.1>2.7>3.5 today UA: no blood or protein Pt was treated as pericardial with prednisone, motrin and cholchicine today pt was complaining of severe chest pain and SOB, Cr elevated to 3.7, greenberg inserted with minimal UO Nephrology consulted for FADY Assessment and Plan FADY Non proteinuric likely multifactorial , from contrast, NSAID and cholchicine poor UO will start on HD for now REnal US when more stable UPC MARGRET, ANCA, C3,C4, SPEP, UPEP Hold cholchicine will srart on HD , BP borderline , will use pressers if necessary Chset pain and SOB patient monitor TTE this admission : LVEF >50%, moderate pul HTN Cardiology evaluation HX of CAD
[2018-06-07 17:11] LABS: Troponin I 0.56 ng/mL (0.0-0.045)
[2018-06-07 17:37] LABS: Urine Appearance CLOUDY; Urine Blood 3+ (NEG); Urine Color YELLOW; Urine Glucose NEGATIVE (NEG); Urine Protein TRACE (NEG); Urine Specific Gravity 1.015 (1.005-1.030); Urine Urobilinogen 0.2 mg/dL (0.2-1.0)
[2018-06-07 17:50] LABS: Urine Microscopic Reflex ORDER UMIC
[2018-06-07] MEDS ORDERED: PIPER/TAZO/NS 2.25gm 2.25 GM/50 ML BAG IVPB SCH (18:00)
[2018-06-07 18:14] LABS: Urine Bacteria >50 /HPF (NONE SEEN)
[2018-06-07 18:15] LABS: Urine Culture Reflex Order REFLEXED
[2018-06-07 18:18] LABS: Urine Bilirubin 1+ (NEG)
--- NOTE | 2018-06-07 19:46 | P.PN ---
Subjective Date of Service: 06/08/18 Chief Complaint: Chest pain after cardiac cath 10 days ago Patient seen and examined at bedside, no family at bedside. patient complaining of intermittent chest pain that is better with leaning forward. It is worse with breathing. He did not look well overall. His blood pressure was on the lower and and he was tachycardic. His creatinine acutely jumped to 2.7. Physical Examination - Vital Signs Temperature: 98.2 F Blood Pressure: 90/43 Pulse: 104 Respirations: 13 Pulse Ox (%): 95 - Physical Exam General: Alert, Moderate distress HEENT: Atraumatic, PERRLA, EOMI Neck: Supple, JVD not distended Respiratory: Expiratory wheezes, Inspiratory wheezes Cardiovascular: Irregular heart rate/rhythm, Rubs (pericardial rub) Gastrointestinal: Normal bowel sounds, No tenderness Musculoskeletal: No tenderness Integumentary: No rashes Neurological: Normal speech, Normal tone, Normal affect Lymphatics: No axilla or inguinal lymphadenopathy - Studies Medications List Reviewed: Yes Assessment And Plan - Current Problems (Diagnosis) (1) Chest pain Onset Date: 06/05/18 Status: Acute Plan: Likely 2/2 pericarditis post surgery. - Start steroids (solumedrol), cochicine and add ibuprofen for pain/ inflammatory control. Discontinue ibuprofen due to kidney function - EKG with nonspecific changes. CT chest, thorax negative for any acute abnormalities. Extremity venous studies negative for DVT. Chest x-ray negative for any acute abnormalities. - Dr. Saenz, cardiology consulted. Recommendations appreciated. (2) Tachycardia Status: Acute Plan: Tachycardia, improving (3) Leukocytosis Status: Acute (4) Diabetes mellitus type 2 in obese Onset Date: 06/05/18 Status: Acute Plan: Patient with newly diagnosed diabetes. Will restart home insulin. Will start Accu-Cheks and sliding scale insulin. Will monitor glucose and adjust as needed. (5) Acute kidney injury Status: Acute Plan: Cr increased to 2.7, worsened today. repeat cxr stable compared to yesterday though still volume overloaded Nephrology consulted. IV Lasix 80 b.i.d.. He will potentially need dialysis. - Plan Patient did not look too well this am, transfer back to ICU, start empiric antibiotics, start heparin drip (for tx of possible PE). Unfortunately, due to his kidney function, we are unable to do any imaging. VQ scan ordered but will go ahead and initiate treatement for PE. General surgery conuslted for temp dialysis catheter placement. Nephrology consulted for dialysis.
[2018-06-07] MEDS: ATORVASTATIN 40 MG TAB PO SCH (21:32)
[2018-06-07] MEDS ORDERED: LORazepam 2 MG/ML VIAL IV ONE (22:35)
[2018-06-07 22:42] LABS: Urine Protein/Creatinine Ratio 0.34 ratio (<0.15)
--- NOTE | 2018-06-07 22:43 | OP ---
Date of Procedure: 06/07/2018 Surgeon: Yannick Ma MD, Preoperative Diagnosis: Acute renal insufficiency. Postoperative Diagnosis: Acute renal insufficiency. Procedure Performed: Placement of left femoral vein hemodialysis catheter using ultrasound guidance and microintroducer set. Estimated Blood Loss: Less than 20 cc. Findings: Dark red nonpulsatile blood was returned. Visualization was performed with ultrasound albertfreida moreno. Complications: None. Implants: A 20 cm Elite 12-Mohawk hemodialysis catheter placed. Anesthesia: Local 1% lidocaine used. Procedure In Detail: After informed consent was obtained, the patient was prepped and draped in the ICU in the usual sterile fashion. After adequate anesthesia achieved 1% lidocaine in the region of l eft groin, there was ultrasound to identify the femoral vein. The femoral vein was found to be a vis ible, however, the femoral artery was in close approximation of this on the anterior surface. I opte d to use a microintroducer set as the patient has received large dose of anticoagulation for suspecte d PE. I therefore cannulated the femoral vein on the first attempt without evidence of complication using direct visualization under ultrasound guidance. The micro wire was then advanced. The needle was removed and a small michelet was placed in the overlying the tract. I then placed the microintroduce r sheath and removed the micro wire. Micro wire out was called at this time and dark red nonpulsatil e blood was returned from the introducer sheath. The inner cannula was removed and a standard wire w as then advanced in the normal anatomic position. After this, the introducer sheath was removed. Se quential dilatation was performed in the tract. The patient was continuing to move throughout the pr ocedure. However, I was able to dilate this up sequentially without evidence of complication. The c atheter was then placed without evidence of complication. Dark red nonpulsatile blood was returned. A wire out was called once again for the standard wire. At this point, all ports were then flushed with saline until completely clear and they maryellen back quite easily. Dark red nonpulsatile blood and after flushing both ports completely with saline, I then packed it with 2000 units of heparin per por t and secured the catheter to the skin with an included 2-0 nylon suture and placed sterile dressing over the top. The patient tolerated well without evidence of complication, remained in the ICU throu ghout the procedure. All counts were correct at the end of the case. HENRI/SOFIA Voice ID: [id number] Report ID: [id number]
[2018-06-07] MEDS ORDERED: LORazepam 2 MG/ML VIAL ONE (22:46)
[2018-06-07] MEDS ORDERED: METOPROLOL TARTRATE 5 MG/5 ML INJ IV ONE ×3 (23:31→23:45)
[2018-06-07] MEDS ORDERED: ALBUMIN HUMAN 25% 50 ML IV ONE (23:53)
[2018-06-08] MEDS ORDERED: EPINEPHrine 1 MG/10 ML SYR IV ONE (00:49)
[2018-06-08] MEDS ORDERED: SODIUM CHL 0.9% 250 ML BAG IV ONE (00:49)
[2018-06-08] MEDS ORDERED: ATROPINE SULF 1 MG/10 ML SYR IV ONE (00:49)
[2018-06-08] MEDS ORDERED: Caclcium Chloride 10% INJ SYR IV ONE (00:49)
[2018-06-08] MEDS ORDERED: D5W 1,000 ML IV ONE (00:52)
--- NOTE | 2018-06-08 09:31 | P.DS ---
Discharge Date: 06/08/18 Disposition: Reason for Admission: Chest pain after stent placement 10 days ago Consultations: Cardiology and Nephrology Brief History of Present Illness: Patient is a 57-year-old gentleman who was admitted to our hospital for shortness of breath and chest pain. He was recently in the hospital for a non ST -elevation myocardial infarction. He had heart catheterization which revealed minimal plaquing of the LAD. He had a stable ejection fraction. He was discharged with medication for his cardiac disease. However, at discharge she continued to have pain. He was readmitted and at the time it was felt that he either had pericarditis and or a pulmonary embolism. Hospital Course: Patient was on a heparin drip and was being given colchicine and steroids. On the evening of June 07, he suddenly had severe shortness of breath and chest pain. Suddenly he lost his pulse and a code blue was called. He had gone in to a bradycardic rhythm prior to going into the pulseless electrical activity and then asystole. We attempted ACLS protocol over the next 50 min. Unfortunately, we were unable to bring patient back. I spoke with family afterwards and they had no further questions. Patient was pronounced at 12:50 a.m. on June 08, 2018. Home Medications: Albuterol Sulfate [Proair Respiclick] 1 in IH TIDP PRN 06/04/18 Aspirin [Aspirin EC 325 MG] 1 tab PO DAILY 06/04/18 Atorvastatin Calcium 40 mg PO BEDTIME 06/04/18 Insulin NPH Human Isophane [Humulin N] 20 units SQ BID 06/04/18 Metformin HCl [Glucophage*] 1 tab PO BID 06/04/18 Metoprolol Tartrate 12.5 mg PO DAILY 06/04/18 Pantoprazole Sodium 40 mg PO DAILY 06/04/18 levoFLOXacin [Levaquin*] 500 mg PO DAILY 06/04/18 Patient Discharge Instructions: Patient peacefully on June 08, 2018 at 12:50 a.m. Time spent managing pt's care (in minutes): 50
--- NOTE | 2018-06-08 10:09 | EKG ---
Test Date: 2018-06-07 Test Time: 09:27:54 Director Telemetry: PATRICE MEASUREMENT RESULTS: Intervals: Rate: 104 VA: 152 QRSD: 100 QT: 356 QTc: 468 [place]: P: 60 VA: 152 QRS: 82 T: -3 INTERPRETIVE STATEMENTS: Sinus tachycardia Possible Left atrial enlargement Non specific T wave abnormality Abnormal ECG Compared to ECG 06/07/2018 09:27:13 T-wave abnormality now present Electronically Signed On 06-08-18 10:09:07 CDT by Gopal Saenz
--- NOTE | 2018-06-08 10:10 | EKG ---
Test Date: 2018-06-07 Test Time: 02:36:01 Retail Buyer: KARYN MEASUREMENT RESULTS: Intervals: Rate: 114 MT: 140 QRSD: 90 QT: 332 QTc: 457 [place]: P: 56 MT: 140 QRS: 75 T: 15 INTERPRETIVE STATEMENTS: Sinus tachycardia Possible Left atrial enlargement Nonspecific T wave abnormality Abnormal ECG Compared to ECG 06/04/2018 19:33:42 T-wave abnormality now present Electronically Signed On 06-08-18 10:09:37 CDT by Gopal Saenz
[2018-06-09 14:03] VITALS: BP 114/69
[2018-06-09 14:08] VITALS: TEMP 97.7
[2018-06-09 14:09] VITALS: O2SAT 99
[2018-06-10 18:48] LABS: HBsAG Nonreactive (Nonreactive)
== END 2018-06-08 00:50 | disposition expired | DRG 314 ==
LOC: ER 13:31 → ERHOLD 15:54 → 3RD-ICU 17:52 → 4TH 06-06 16:40 → 3RD-ICU 06-07 10:33
PROVIDERS: ADMIT Family Medicine; ATTEND Family Medicine
PROC: 0JHM3XZ Insertion of Tunneled Vascular Access Device into Left Upper Leg Subcutaneous Tissue and Fascia, Percutaneous Approach (ICD-10-PCS; principal; 2018-06-07)
PROC: 06HN33Z Insertion of Infusion Device into Left Femoral Vein, Percutaneous Approach (ICD-10-PCS; 2018-06-07)
PROC: B54CZZA Ultrasonography of Left Lower Extremity Veins, Guidance (ICD-10-PCS; 2018-06-07)
PROC: 5A1D70Z Performance of Urinary Filtration, Intermittent, Less than 6 Hours Per Day (ICD-10-PCS; 2018-06-07)
PROC: 5A12012 Performance of Cardiac Output, Single, Manual (ICD-10-PCS; 2018-06-08)
DX: I31.9 Disease of pericardium, unspecified (principal); J18.9 Pneumonia, unspecified organism; I26.99 Other pulmonary embolism without acute cor pulmonale; N17.9 Acute kidney failure, unspecified; I10 Essential (primary) hypertension; Z96.652 Presence of left artificial knee joint; Z87.891 Personal history of nicotine dependence; I25.10 Atherosclerotic heart disease of native coronary artery without angina pectoris; E11.9 Type 2 diabetes mellitus without complications; Z79.4 Long term (current) use of insulin; E66.9 Obesity, unspecified; Z68.31 Body mass index [BMI] 31.0-31.9, adult; R00.0 Tachycardia, unspecified; D72.829 Elevated white blood cell count, unspecified; I46.9 Cardiac arrest, cause unspecified
CPT/HCPCS: 36415; 71045; 71275; 80048; 80053; 80061; 80076; 81001; 81003; 81015; 82550; 82553; 82570; 82962; 83605; 83735; 83880; 84100; 84156; 84484; 85025; 85379; 85610; 85730; 86317; 86704; 86706; 87040; 87086; 87088; 87340; 90935; 93005; 93306; 93970; 93971; 96372; 96374; 96375; 99285; J0171; J1650; J2405; J2930; J3010; J7060; J7512; P9047; Q9967